=== PATIENT | female | born 1955 | race Caucasian/White ===

== ENCOUNTER 2018-01-02 20:25 | Inpatient (IN) | payer MEDICARE ==
[~2018-01-02] VITALS: Ht 160 cm; Wt 88.0 kg
[2018-01-02 23:00] VITALS: BP 173/96
[2018-01-03] MEDS ORDERED: ASPIRIN EC81 MG ORAL (00:09)
[2018-01-03] MEDS ORDERED: TELMISARTAN80 MG PO (00:09)
[2018-01-03] MEDS ORDERED: MILK OF MA2400 MG/10 ORAL (00:09)
[2018-01-03] MEDS ORDERED: CLOPIDOGREL75 MG ORAL (00:09)
[2018-01-03] MEDS ORDERED: HYDROCHLOROTHIA25 MG ORAL (00:09)
[2018-01-03] MEDS ORDERED: SPIRIVA18 MCG INH (00:09)
[2018-01-03] MEDS ORDERED: CYMBALTA60 MG ORAL (00:09)
[2018-01-03] MEDS ORDERED: KLONOPIN1 MG ORAL (00:09)
[2018-01-03] MEDS ORDERED: REXULTI3 MG PO (00:09)
[2018-01-03] MEDS ORDERED: PROAIR HFA8.5 GM INH (00:09)
[2018-01-03] MEDS ORDERED: METOPROLOL SUCC50 MG ORAL (00:09)
[2018-01-03] MEDS ORDERED: ACETAMINOPHEN325 M1 ORAL (00:09)
[2018-01-03] MEDS ORDERED: ATORVASTATIN CA40 MG ORAL (00:09)
[2018-01-03] MEDS ORDERED: COLACE100 MG ORAL (00:09)
[2018-01-03] MEDS ORDERED: GABAPENTIN600 MG ORAL (00:09)
[2018-01-03] MEDS ORDERED: TERAZOSIN HCL1 MG ORAL (00:09)
[2018-01-03] MEDS ORDERED: LISINOPRIL20 MG ORAL (00:09)
[2018-01-03] MEDS ORDERED: Milk of Magnesia 30ml Ud ORAL PRN (01:45)
[2018-01-03] MEDS ORDERED: Albuterol 90mcg Inhaler 8gm INH PRN (01:45)
[2018-01-03 04:00] VITALS: BP 189/115
[2018-01-03 07:38] LABS: HEMATOCRIT 44.5 % (37.0-47.0); HEMOGLOBIN 15.6 G/DL (12.0-16.0); MEAN CORPUSCULAR VOLUME 81 FL (80-99); PLATELET COUNT 295 K/UL (150-450); RED BLOOD COUNT 5.51 M/UL (4.20-5.40); RED CELL DISTRIBUTION WIDTH 11.7 % (11.6-14.8); WHITE BLOOD COUNT 18.1 K/UL (4.8-10.8)
[2018-01-03 08:00] VITALS: BP 161/95
[2018-01-03 08:12] LABS: ANION GAP 18 mmol/L (5-15); BLOOD UREA NITROGEN 21 mg/dL (7-18); CALCIUM 9.4 MG/DL (8.5-10.1); CARBON DIOXIDE 20 MMOL/L (21-32); CHLORIDE 96 MMOL/L (98-107); CHOLESTEROL 176 MG/DL (< 200); HDL CHOLESTEROL 51 MG/DL (40-60); PHOSPHORUS 3.3 MG/DL (2.5-4.9); SODIUM 134 MMOL/L (136-145); TRIGLYCERIDES 125 MG/DL (30-150)
[2018-01-03] MEDS ORDERED: Lisinopril 20mg tab ORAL SCH (09:00)
[2018-01-03] MEDS ORDERED: Metoprolol Succinate XL 50mg tab ORAL SCH (09:00)
[2018-01-03] MEDS ORDERED: Irbesartan 150mg tablet ORAL SCH (09:00)
[2018-01-03] MEDS: Aspirin EC 81mg tab ORAL SCH (10:03)
[2018-01-03] MEDS: Docusate 100mg cap ORAL SCH ×2 (10:03→17:53)
[2018-01-03] MEDS: Terazosin 1mg cap ORAL SCH (10:04)
[2018-01-03 12:00] VITALS: BP 141/82
[2018-01-03] MEDS: DULoxetine 30mg cap ORAL SCH (12:30)
[2018-01-03] MEDS: Metoprolol Succinate XL 50mg tab ORAL SCH ×2 (12:35→20:28)
--- NOTE | 2018-01-03 13:13 | Consultation ---
History of Present Illness General Date patient seen: Jan 03, 2018 Present Illness HPI 62 yo female with mmp who has been admitted for ams and pneumonia. the pt is lethargic and is a poor historian. The pt is on cymbalta and klonopin. She takes the medications at the facility she resides. the pt has waxing and waning of consciousness. Allergies: Coded Allergies: SULFA (SULFONAMIDE ANTIBIOTICS) (Unverified Allergy, Unknown, 01/03/18) Medication History Scheduled Aspirin Ec* (Aspirin Ec*), 81 MG ORAL DAILY, (Reported) Atorvastatin Calcium* (Atorvastatin Calcium*), 80 MG ORAL BEDTIME, (Reported) Brexpiprazole (Rexulti), 3 MG PO DAILY, (Reported) Clonazepam* (Klonopin*), 1 MG ORAL HS, (Reported) Clopidogrel* (Clopidogrel*), 75 MG ORAL DAILY, (Reported) Docusate Sodium* (Colace*), 100 MG ORAL TWICE A DAY, (Reported) Duloxetine Hcl* (Cymbalta*), 60 MG ORAL DAILY, (Reported) Gabapentin* (Gabapentin*), 600 MG ORAL THREE TIMES A DAY, (Reported) Hydrochlorothiazide* (Hydrochlorothiazide*), 25 MG ORAL DAILY, (Reported) Lisinopril (Lisinopril*), 40 MG ORAL DAILY, (Reported) Metoprolol Succinate* (Metoprolol Succinate*), 50 MG ORAL DAILY, (Reported) Telmisartan (Telmisartan), 80 MG PO DAILY, (Reported) Terazosin Hcl* (Hytrin*), 2 MG ORAL DAILY, (Reported) Tiotropium [place]* (Spiriva*), 1 PUFF INH DAILY, (Reported) Scheduled PRN Acetaminophen* (Acetaminophen 325MG Tablet*), 650 MG ORAL Q6H PRN for Fever/ Headache/Mild Pain, (Reported) Albuterol Sulfate* (Proair Hfa*), 2 PUFFS INH Q4HR PRN for Shortness of breath, (Reported) Magnesium Hydroxide* (Milk Of Magnesia*), 30 ML ORAL DAILY PRN for Constipation, (Reported) Patient History Limited by: medical condition History Provided By: Patient, Medical Record, PMD Healthcare decision maker Resuscitation status Full Code Advanced Directive on File Past Medical/Surgical History Past Medical/Surgical History: (1) Altered consciousness (2) ALOC, HTN, Pneumonia Review of Systems Psychiatric: Reports: prior hx, anxiety, depressed feelings Physical Exam General Appearance: no apparent distress, lethargic Neurologic: depressed affect Last 24 Hour Vital Signs Date Time Temp Pulse Resp B/P (MAP) Pulse Ox O2 Delivery O2 Flow Rate FiO2 01/03/18 12:35 108 141/82 01/03/18 12:00 97.7 108 21 141/82 95 Room Air 97.7 01/03/18 12:00 125 01/03/18 10:04 161/95 01/03/18 08:12 118 20 98 Room Air 21 01/03/18 08:06 110 20 95 Room Air 21 01/03/18 08:04 95 Room Air 21 01/03/18 08:00 112 01/03/18 08:00 97.9 110 21 161/95 94 Room Air 97.9 01/03/18 06:44 189/115 01/03/18 04:00 91 01/03/18 04:00 98.0 97 20 189/115 98 Room Air 98.0 01/03/18 00:00 84 01/02/18 23:00 98.0 16 173/96 98 Room Air 98.0 Intake and Output 01/02/18 01/03/18 19:00 07:00 # Voids 3 Laboratory Tests Test 01/03/18 06:50 White Blood Count 18.1 K/UL (4.8-10.8) H Red Blood Count 5.51 M/UL (4.20-5.40) H Hemoglobin 15.6 G/DL (12.0-16.0) Hematocrit 44.5 % (37.0-47.0) Mean Corpuscular Volume 81 FL (80-99) Mean Corpuscular Hemoglobin 28.3 PG (27.0-31.0) Mean Corpuscular Hemoglobin Concent 35.0 G/DL (32.0-36.0) Red Cell Distribution Width 11.7 % (11.6-14.8) Platelet Count 295 K/UL (150-450) Mean Platelet Volume 7.4 FL (6.5-10.1) Neutrophils (%) (Auto) % (45.0-75.0) Lymphocytes (%) (Auto) % (20.0-45.0) Monocytes (%) (Auto) % (1.0-10.0) Eosinophils (%) (Auto) % (0.0-3.0) Basophils (%) (Auto) % (0.0-2.0) Differential Total Cells Counted 100 Neutrophils % (Manual) 73 % (45-75) Lymphocytes % (Manual) 21 % (20-45) Monocytes % (Manual) 6 % (1-10) Eosinophils % (Manual) 0 % (0-3) Basophils % (Manual) 0 % (0-2) Band Neutrophils 0 % (0-8) Platelet Estimate Adequate Platelet Morphology Normal Red Blood Cell Morphology Normal Sodium Level 134 MMOL/L (136-145) L Potassium Level 3.0 MMOL/L (3.5-5.1) L Chloride Level 96 MMOL/L (98-107) L Carbon Dioxide Level 20 MMOL/L (21-32) L Anion Gap 18 mmol/L (5-15) H Blood Urea Nitrogen 21 mg/dL (7-18) H Creatinine 1.0 MG/DL (0.55-1.30) Estimat Glomerular Filtration Rate 56.4 mL/min (>60) Glucose Level 184 MG/DL (74-106) H Calcium Level 9.4 MG/DL (8.5-10.1) Phosphorus Level 3.3 MG/DL (2.5-4.9) Magnesium Level 1.5 MG/DL (1.8-2.4) L Triglycerides Level 125 MG/DL (30-150) Cholesterol Level 176 MG/DL (< 200) LDL Cholesterol 113 mg/dL (<100) H HDL Cholesterol 51 MG/DL (40-60) Cholesterol/HDL Ratio 3.5 (3.3-4.4) Height (Feet): 5 Height (Inches): 3.00 Weight (Pounds): 194 Medications Current Medications Medications (Trade) Dose Ordered Sig/Crystal Route PRN Reason Start Time Stop Time Status Last Admin Dose Admin Acetaminophen (Tylenol) 650 mg Q6H PRN ORAL Fever/Headache/Mild Pain 01/03/18 01:45 02/02/18 01:44 Albuterol Sulfate (Proventil MDI) 2 puff Q4H PRN INH Shortness of breath 01/03/18 01:45 02/02/18 01:44 Aspirin (Ecotrin) 81 mg DAILY ORAL 01/03/18 09:00 02/02/18 08:59 01/03/18 10:03 Atorvastatin Calcium (Lipitor) 80 mg BEDTIME ORAL 01/03/18 21:00 02/02/18 20:59 Clonazepam (KlonoPIN) 1 mg BEDTIME ORAL 01/03/18 21:00 01/10/18 20:59 Clonidine HCl (Catapres Tab) 0.1 mg Q4H PRN ORAL For High Blood Pressure 01/03/18 06:15 02/02/18 06:14 01/03/18 06:44 Clopidogrel Bisulfate (Plavix) 75 mg DAILY ORAL 01/03/18 09:00 02/02/18 08:59 01/03/18 10:04 Docusate Sodium (Colace) 100 mg TWICE A DAY ORAL 01/03/18 09:00 02/02/18 08:59 01/03/18 10:03 Duloxetine HCl (Cymbalta) 60 mg DAILY ORAL 01/03/18 12:30 02/02/18 12:29 01/03/18 12:30 Gabapentin (Neurontin) 600 mg THREE TIMES A DAY ORAL 01/03/18 13:00 02/02/18 12:59 01/03/18 12:30 Heparin Sodium (Porcine) (Heparin 5000 units/ml) 5,000 units EVERY 8 HOURS SUBQ 01/03/18 14:00 02/02/18 13:59 Hydrochlorothiazide (Hydrodiuril) 25 mg DAILY ORAL 01/03/18 09:00 02/02/18 08:59 01/03/18 10:04 Irbesartan (Avapro) 300 mg DAILY ORAL 01/03/18 09:00 02/02/18 08:59 01/03/18 10:04 Magnesium Hydroxide (Mom) 30 ml DAILY PRN ORAL Constipation 01/03/18 01:45 02/02/18 01:44 Magnesium Sulfate 100 ml @ 100 mls/hr Q1H IVPB 01/03/18 12:00 01/03/18 13:59 01/03/18 12:29 Metoprolol Succinate (Toprol XL) 50 mg Q12HR ORAL 01/03/18 12:00 02/02/18 11:59 01/03/18 12:35 Non-Formulary Medication (Non-Formulary Med) 1 ea DAILY ORAL 01/03/18 09:00 02/02/18 08:59 UNV Potassium Chloride (K-Dur) 40 meq Q8H ORAL 01/03/18 12:00 01/03/18 20:01 01/03/18 12:29 Terazosin HCl (Hytrin) 2 mg DAILY ORAL 01/03/18 09:00 02/02/18 08:59 01/03/18 10:04 Tiotropium [place] (Spiriva Inhaler) 1 puff DAILY INH 01/03/18 09:00 02/02/18 08:59 01/03/18 08:09 Assessment/Plan Status: not improved Assessment/Plan MDD Anxiety Encephalopathy -Cymbalta -Klonopin -Seroquel Kathleen Bonds M.D. Jan 03, 2018 13:13
[2018-01-03] MEDS: Heparin 5000 units/ml inj SUBQ SCH ×2 (14:50→22:26)
[2018-01-03 16:00] VITALS: BP 133/81
--- NOTE | 2018-01-03 16:31 | Diagnostic Imaging Report ---
Indication: Altered level of consciousness Technique: sagittal T1 fast spin echo, axial T1 FLAIR, axial T2 FLAIR, axial T2 FS PROPELLER, axial T2* GRE, axial diffusion weighted images. ADC and exponential ADC maps generated Comparison: none Findings: There is an area of encephalomalacia in the left occipital lobe. The periphery of this nodule demonstrating high diffusion signal and low signal on ADC map, consisting extension of prior infarct in this area. No associated hemorrhage. There is a large area of encephalomalacia of the involving much of the left parietal lobe, the posterior temporal lobe, and extending into the occipital lobe. There is of susceptibility artifact on the GRE images demonstrate matched low signal on the T1 and T1-2 weighted images, consistent with chronic areas of hemorrhage. Peripheral areas of high T1 signal do not have any associated GRE abnormality, most likely represent areas of cortical laminar necrosis. There is high signal on the diffusion weighted images, but the high diffusion signal appears to mostly show high signal on the ADC map, consistent with artifact of so-called T2 shine-through. There is a small area of encephalomalacia in the posterior right temporal lobe. No definite acute hemorrhage associated with this.. Elsewhere, no definite acute hemorrhage or edema, mass effect, nor midline shift. There is mild age-related prominence of the ventricles and extra axial CSF spaces. There is periventricular deep white matter chronic ischemic change. Visualized orbits are unremarkable. There is sinus disease Impression: Left occipital infarct. The central portion of this appears mostly chronic, but there appears to be some peripheral extension of acute infarct, with high diffusion signal present Large old left temporoparietal infarct, with areas of old hemorrhage and cortical laminar necrosis Old right posterior temporal infarct Other chronic and age-related changes, as described Sinus disease Findings discussed by phone with Dr. Nunez at the time of interpretation
--- NOTE | 2018-01-03 18:07 | History & Physical ---
History and Physical History & Physicial Dictated for Int Med-Dr Nunez no. [id number]. Constantin Benson MD Jan 03, 2018 18:07
[2018-01-03 20:00] VITALS: BP 92/52
[2018-01-03] MEDS: Atorvastatin 80mg tab ORAL SCH (20:28)
--- NOTE | 2018-01-03 22:08 | Consultation ---
History of Present Illness Present Illness Allergies: Coded Allergies: SULFA (SULFONAMIDE ANTIBIOTICS) (Unverified Allergy, Unknown, 01/03/18) Medication History Scheduled Aspirin Ec* (Aspirin Ec*), 81 MG ORAL DAILY, (Reported) Atorvastatin Calcium* (Atorvastatin Calcium*), 80 MG ORAL BEDTIME, (Reported) Brexpiprazole (Rexulti), 3 MG PO DAILY, (Reported) Clonazepam* (Klonopin*), 1 MG ORAL HS, (Reported) Clopidogrel* (Clopidogrel*), 75 MG ORAL DAILY, (Reported) Docusate Sodium* (Colace*), 100 MG ORAL TWICE A DAY, (Reported) Duloxetine Hcl* (Cymbalta*), 60 MG ORAL DAILY, (Reported) Gabapentin* (Gabapentin*), 600 MG ORAL THREE TIMES A DAY, (Reported) Hydrochlorothiazide* (Hydrochlorothiazide*), 25 MG ORAL DAILY, (Reported) Lisinopril (Lisinopril*), 40 MG ORAL DAILY, (Reported) Metoprolol Succinate* (Metoprolol Succinate*), 50 MG ORAL DAILY, (Reported) Telmisartan (Telmisartan), 80 MG PO DAILY, (Reported) Terazosin Hcl* (Hytrin*), 2 MG ORAL DAILY, (Reported) Tiotropium [place]* (Spiriva*), 1 PUFF INH DAILY, (Reported) Scheduled PRN Acetaminophen* (Acetaminophen 325MG Tablet*), 650 MG ORAL Q6H PRN for Fever/ Headache/Mild Pain, (Reported) Albuterol Sulfate* (Proair Hfa*), 2 PUFFS INH Q4HR PRN for Shortness of breath, (Reported) Magnesium Hydroxide* (Milk Of Magnesia*), 30 ML ORAL DAILY PRN for Constipation, (Reported) Patient History Healthcare decision maker Resuscitation status Full Code Advanced Directive on File Physical Exam Last 24 Hour Vital Signs Date Time Temp Pulse Resp B/P (MAP) Pulse Ox O2 Delivery O2 Flow Rate FiO2 01/03/18 20:28 112 92/52 01/03/18 20:00 97.3 114 22 92/52 97 Room Air 97.3 01/03/18 20:00 112 01/03/18 19:25 113 115 137 01/03/18 16:00 112 01/03/18 16:00 97.9 101 20 133/81 97 Room Air 97.9 01/03/18 12:35 108 141/82 01/03/18 12:00 97.7 108 21 141/82 95 Room Air 97.7 01/03/18 12:00 125 01/03/18 10:04 161/95 01/03/18 08:12 118 20 98 Room Air 21 01/03/18 08:06 110 20 95 Room Air 21 01/03/18 08:04 95 Room Air 21 01/03/18 08:00 112 01/03/18 08:00 97.9 110 21 161/95 94 Room Air 97.9 01/03/18 06:44 189/115 01/03/18 04:00 91 01/03/18 04:00 98.0 97 20 189/115 98 Room Air 98.0 01/03/18 00:00 84 01/02/18 23:00 98.0 16 173/96 98 Room Air 98.0 Intake and Output 01/02/18 01/03/18 19:00 07:00 # Voids 3 Laboratory Tests Test 01/03/18 06:50 White Blood Count 18.1 K/UL (4.8-10.8) H Red Blood Count 5.51 M/UL (4.20-5.40) H Hemoglobin 15.6 G/DL (12.0-16.0) Hematocrit 44.5 % (37.0-47.0) Mean Corpuscular Volume 81 FL (80-99) Mean Corpuscular Hemoglobin 28.3 PG (27.0-31.0) Mean Corpuscular Hemoglobin Concent 35.0 G/DL (32.0-36.0) Red Cell Distribution Width 11.7 % (11.6-14.8) Platelet Count 295 K/UL (150-450) Mean Platelet Volume 7.4 FL (6.5-10.1) Neutrophils (%) (Auto) % (45.0-75.0) Lymphocytes (%) (Auto) % (20.0-45.0) Monocytes (%) (Auto) % (1.0-10.0) Eosinophils (%) (Auto) % (0.0-3.0) Basophils (%) (Auto) % (0.0-2.0) Differential Total Cells Counted 100 Neutrophils % (Manual) 73 % (45-75) Lymphocytes % (Manual) 21 % (20-45) Monocytes % (Manual) 6 % (1-10) Eosinophils % (Manual) 0 % (0-3) Basophils % (Manual) 0 % (0-2) Band Neutrophils 0 % (0-8) Platelet Estimate Adequate Platelet Morphology Normal Red Blood Cell Morphology Normal Sodium Level 134 MMOL/L (136-145) L Potassium Level 3.0 MMOL/L (3.5-5.1) L Chloride Level 96 MMOL/L (98-107) L Carbon Dioxide Level 20 MMOL/L (21-32) L Anion Gap 18 mmol/L (5-15) H Blood Urea Nitrogen 21 mg/dL (7-18) H Creatinine 1.0 MG/DL (0.55-1.30) Estimat Glomerular Filtration Rate 56.4 mL/min (>60) Glucose Level 184 MG/DL (74-106) H Calcium Level 9.4 MG/DL (8.5-10.1) Phosphorus Level 3.3 MG/DL (2.5-4.9) Magnesium Level 1.5 MG/DL (1.8-2.4) L Triglycerides Level 125 MG/DL (30-150) Cholesterol Level 176 MG/DL (< 200) LDL Cholesterol 113 mg/dL (<100) H HDL Cholesterol 51 MG/DL (40-60) Cholesterol/HDL Ratio 3.5 (3.3-4.4) Height (Feet): 5 Height (Inches): 3.00 Weight (Pounds): 194 Medications Current Medications Medications (Trade) Dose Ordered Sig/Crystal Route PRN Reason Start Time Stop Time Status Last Admin Dose Admin Acetaminophen (Tylenol) 650 mg Q6H PRN ORAL Fever/Headache/Mild Pain 01/03/18 01:45 02/02/18 01:44 Albuterol Sulfate (Proventil MDI) 2 puff Q4H PRN INH Shortness of breath 01/03/18 01:45 02/02/18 01:44 Aspirin (Ecotrin) 81 mg DAILY ORAL 01/03/18 09:00 02/02/18 08:59 01/03/18 10:03 Atorvastatin Calcium (Lipitor) 80 mg BEDTIME ORAL 01/03/18 21:00 02/02/18 20:59 01/03/18 20:28 Clonazepam (KlonoPIN) 1 mg BEDTIME ORAL 01/03/18 21:00 01/10/18 20:59 01/03/18 20:27 Clonidine HCl (Catapres Tab) 0.1 mg Q4H PRN ORAL For High Blood Pressure 01/03/18 06:15 02/02/18 06:14 01/03/18 06:44 Clopidogrel Bisulfate (Plavix) 75 mg DAILY ORAL 01/03/18 09:00 02/02/18 08:59 01/03/18 10:04 Docusate Sodium (Colace) 100 mg TWICE A DAY ORAL 01/03/18 09:00 02/02/18 08:59 01/03/18 17:53 Duloxetine HCl (Cymbalta) 60 mg DAILY ORAL 01/03/18 12:30 02/02/18 12:29 01/03/18 12:30 Gabapentin (Neurontin) 600 mg THREE TIMES A DAY ORAL 01/03/18 13:00 02/02/18 12:59 01/03/18 17:53 Heparin Sodium (Porcine) (Heparin 5000 units/ml) 5,000 units EVERY 8 HOURS SUBQ 01/03/18 14:00 02/02/18 13:59 Hydrochlorothiazide (Hydrodiuril) 25 mg DAILY ORAL 01/03/18 09:00 02/02/18 08:59 01/03/18 10:04 Irbesartan (Avapro) 300 mg DAILY ORAL 01/04/18 09:00 02/02/18 08:59 Magnesium Hydroxide (Mom) 30 ml DAILY PRN ORAL Constipation 01/03/18 01:45 02/02/18 01:44 Metoprolol Succinate (Toprol XL) 50 mg Q12HR ORAL 01/03/18 12:00 02/02/18 11:59 01/03/18 12:35 Non-Formulary Medication (Non-Formulary Med) 1 ea DAILY ORAL 01/03/18 09:00 02/02/18 08:59 UNV Quetiapine Fumarate (SEROquel) 12.5 mg Q4H PRN ORAL Agitation 01/03/18 14:30 02/02/18 14:29 Terazosin HCl (Hytrin) 2 mg DAILY ORAL 01/03/18 09:00 02/02/18 08:59 01/03/18 10:04 Tiotropium [place] (Spiriva Inhaler) 1 puff DAILY INH 01/03/18 09:00 02/02/18 08:59 01/03/18 08:09 Jalen Cantrell MD Jan 03, 2018 22:08
--- NOTE | 2018-01-03 22:31 | History and Physical Report ---
DATE OF ADMISSION: 01/03/2018 CHIEF COMPLAINT: This is a 62-year-old white female, who presents with chief complaint of altered mental status. HISTORY OF PRESENT ILLNESS: The patient has a history of cerebrovascular accident. The patient has chronic dysarthria. The patient is a resident of [facility]. According to staff at [facility], the patient began to have altered mental status yesterday January 02, 2018. The patient was transferred to [facility] emergency room. The patient is transferred to [facility] for insurance purposes. The patient is admitted for altered mental status, rule out acute cerebrovascular accident. PAST MEDICAL HISTORY: Significant for, 1. Cerebrovascular accident. 2. Hypertension. 3. Hypercholesterolemia. 4. Congestive heart failure. PAST SURGICAL HISTORY: The patient denies. CURRENT MEDICATIONS: 1. Cymbalta 60 mg one tablet p.o. daily. 2. Gabapentin 600 mg one tablet p.o. 3 times daily. 3. Hydrochlorothiazide 25 mg p.o. daily. 4. Metoprolol 50 mg p.o. daily. 5. Klonopin 1 mg p.o. at bedtime. 6. Clopidogrel 75 mg p.o. daily. 7. Aspirin 81 mg p.o. daily. 8. Atorvastatin 80 mg p.o. daily. 9. Rexulti 3 mg p.o. daily. ALLERGIES: Sulfa drugs. SOCIAL HISTORY: The patient is single. The patient denies tobacco or alcohol use. PHYSICAL EXAMINATION: VITAL SIGNS: Temperature 97.7, respirations 21, pulse 108 to 125, and blood pressure 141/82. GENERAL: The patient is a well-developed and well-nourished white female, in no apparent distress. HEENT: Eyes, pupils equal and responsive to light and accommodation. Extraocular movements are intact. NECK: Supple without lymphadenopathy. CHEST: Lungs are clear to auscultation bilaterally without wheezes or rales. CARDIOVASCULAR: Regular rhythm and rate. S1 and S2 are normal without murmurs, rubs, or gallops. ABDOMEN: Soft, nontender, and nondistended. Positive bowel sounds. No evidence of hepatosplenomegaly. Currently, no rebound or guarding noted. EXTREMITIES: Negative for clubbing, cyanosis, or edema. RECTAL/GENITAL: Refused. NEUROLOGIC: Cranial nerves II through XII are grossly intact without focal deficits. Motor strength is 5/5 bilaterally. Deep tendon reflexes are 2+ plantar. LABORATORY DATA: A CT scan of the brain revealed bilateral lower attention areas consistent with infarcts of uncertain age. WBC 10.3, hemoglobin 14.3, hematocrit 41.7, and platelets 206,000. Sodium 139, potassium 3.7, chloride 101, CO2 28, BUN 24, creatinine 1.3, and glucose 172. ASSESSMENT: This is a 62-year-old white female. 1. Altered mental status. 2. Uncontrolled hypertension. 3. Pneumonia. 4. Hypercholesterolemia. 5. History of cerebrovascular disease. 6. Bipolar depression. 7. Probable acute cerebrovascular accident. TREATMENT: 1. Altered mental status/history of cerebrovascular accident. A Neurology consultation has been obtained with Dr. Charlie Murdock. We will follow recommendations of Neurology. An MRI of the brain is pending. 2. Uncontrolled hypertension. Continue metoprolol as above. Intravenous Vasotec has been added. 3. Hypercholesteremia. Continue Lipitor as above. 4. Bipolar depression. Continue Cymbalta as above. Constantin Benson M.D. DR: JESUS JOB#: [id number] CC:
[2018-01-04] VITALS (8 sets, daily range): BP systolic 78–133; BP diastolic 48–71
[2018-01-04] MEDS: Heparin 5000 units/ml inj SUBQ SCH ×3 (05:49→22:48)
--- NOTE | 2018-01-04 08:33 | Pulmonology Progress Note ---
Assessment/Plan Assessment/Plan ASSESSMENT Recent acute left occipital infarct Extensive cerebrovascular disease with history of previous CVA Hypertensive urgency-resolved, currently hypotensive RICCARDO, possibly ATN due to hypotension Hypercholesterolemia Acute encephalopathy secondary to acute CVA Hypo K, hypo Mg Leukocytosis MDD Anxiety PLAN OF CARE Telemetry floor MRI of the brain + left occipital infarct with evidence of extensive cerebrovascular disease and previous CVA neurology eval pending continue aspirin and Plavix lipid panel with elevated LDL on high dose of statin Carotid Duplex blood pressure management with ARB and BB , dc HcTZ, decrease ARB dose and holding parameters on a/HTN meds; need to keep BP between 120-40 to maintain optimal cerebral perfusion orthostatic vital signs DVT prophylaxis gentle IV hydration acute encephalopathy resolving, likely secondary to recent CVA leukocytosis likely reactive due to acute CVA, afebrile, will hold off on abx , but will check UA, CXR, blood cx PT/OT/ ST fall precaution monitor renal parameters ,electrolytes, correct lytes as needed, avoid nephrotoxic dc HcTz RICCARDO/ATN possibly due to unstable hemodynamics, i.e. hypotension, continue gentle IV hydration psychiatrist follows, psychiatric medication regimen as per psychiatrist case discussed and evaluated by supervising physician Subjective Allergies: Coded Allergies: SULFA (SULFONAMIDE ANTIBIOTICS) (Unverified Allergy, Unknown, 01/03/18) Subjective denies chest pain, SOB no headache no new weakness transferred from [place] apparently recent history of left CVA noted on CT brain in [place] afebrile, with leucocytosis, trending down, denies urinary complaints, cough creat up to 1.5 today Objective Last 24 Hour Vital Signs Date Time Temp Pulse Resp B/P (MAP) Pulse Ox O2 Delivery O2 Flow Rate FiO2 01/04/18 06:10 125 01/04/18 06:05 111 01/04/18 06:00 95 01/04/18 04:00 97 01/04/18 04:00 98.6 70 22 99/52 96 Room Air 98.6 01/04/18 00:45 90 112/59 01/04/18 00:30 89 105/54 01/04/18 00:00 89 01/04/18 00:00 98.8 99 22 90/55 99 Room Air 98.8 01/03/18 20:28 112 92/52 01/03/18 20:00 97.3 114 22 92/52 97 Room Air 97.3 01/03/18 20:00 112 01/03/18 19:25 113 115 137 01/03/18 16:00 112 01/03/18 16:00 97.9 101 20 133/81 97 Room Air 97.9 01/03/18 12:35 108 141/82 01/03/18 12:00 97.7 108 21 141/82 95 Room Air 97.7 01/03/18 12:00 125 01/03/18 10:04 161/95 Intake and Output 01/03/18 01/04/18 19:00 07:00 Intake Total 380 ml Balance 380 ml Intake Oral 380 ml # Voids 2 2 General Appearance: no acute distress, other - awake, alert, responsive , mildly dysarthric female HEENT: normocephalic, atraumatic, anicteric Respiratory/Chest: lungs clear, no respiratory distress, no accessory muscle use Cardiovascular: normal peripheral pulses, normal rate - SR on tele Abdomen: soft, non tender, non distended Extremities: no edema, pedal pulses normal Neurologic/Psychiatric: abnormal gait - R side weakness , alert, responsive Musculoskeletal: atrophy - BLE Laboratory Tests 01/04/18 07:35: White Blood Count [Pending], Red Blood Count [Pending], Hemoglobin [Pending], Hematocrit [Pending], Mean Corpuscular Volume [Pending], Mean Corpuscular Hemoglobin [Pending], Mean Corpuscular Hemoglobin Concent [Pending], Red Cell Distribution Width [Pending], Platelet Count [Pending], Mean Platelet Volume [ Pending], Neutrophils (%) (Auto) [Pending], Lymphocytes (%) (Auto) [Pending], Monocytes (%) (Auto) [Pending], Eosinophils (%) (Auto) [Pending], Basophils (%) (Auto) [Pending], Sodium Level [Pending], Potassium Level [Pending], Chloride Level [Pending], Carbon Dioxide Level [Pending], Blood Urea Nitrogen [Pending], Creatinine [Pending], Estimat Glomerular Filtration Rate [Pending], Glucose Level [Pending], Calcium Level [Pending] Current Medications Medications (Trade) Dose Ordered Sig/Crystal Route PRN Reason Start Time Stop Time Status Last Admin Dose Admin Acetaminophen (Tylenol) 650 mg Q6H PRN ORAL Fever/Headache/Mild Pain 01/03/18 01:45 02/02/18 01:44 Albuterol Sulfate (Proventil MDI) 2 puff Q4H PRN INH Shortness of breath 01/03/18 01:45 02/02/18 01:44 Aspirin (Ecotrin) 81 mg DAILY ORAL 01/03/18 09:00 02/02/18 08:59 01/03/18 10:03 Atorvastatin Calcium (Lipitor) 80 mg BEDTIME ORAL 01/03/18 21:00 02/02/18 20:59 01/03/18 20:28 Clonazepam (KlonoPIN) 1 mg BEDTIME ORAL 01/03/18 21:00 01/10/18 20:59 01/03/18 20:27 Clonidine HCl (Catapres Tab) 0.1 mg Q4H PRN ORAL For High Blood Pressure 01/03/18 06:15 02/02/18 06:14 01/03/18 06:44 Clopidogrel Bisulfate (Plavix) 75 mg DAILY ORAL 01/03/18 09:00 02/02/18 08:59 01/03/18 10:04 Docusate Sodium (Colace) 100 mg TWICE A DAY ORAL 01/03/18 09:00 02/02/18 08:59 01/03/18 17:53 Duloxetine HCl (Cymbalta) 60 mg DAILY ORAL 01/03/18 12:30 02/02/18 12:29 01/03/18 12:30 Gabapentin (Neurontin) 600 mg THREE TIMES A DAY ORAL 01/03/18 13:00 02/02/18 12:59 01/03/18 17:53 Heparin Sodium (Porcine) (Heparin 5000 units/ml) 5,000 units EVERY 8 HOURS SUBQ 01/03/18 14:00 02/02/18 13:59 01/04/18 05:49 Hydrochlorothiazide (Hydrodiuril) 25 mg DAILY ORAL 01/03/18 09:00 02/02/18 08:59 01/03/18 10:04 Irbesartan (Avapro) 300 mg DAILY ORAL 01/04/18 09:00 02/02/18 08:59 Magnesium Hydroxide (Mom) 30 ml DAILY PRN ORAL Constipation 01/03/18 01:45 02/02/18 01:44 Metoprolol Succinate (Toprol XL) 50 mg Q12HR ORAL 01/03/18 12:00 02/02/18 11:59 01/03/18 12:35 Non-Formulary Medication (Non-Formulary Med) 1 ea DAILY ORAL 01/03/18 09:00 02/02/18 08:59 UNV Quetiapine Fumarate (SEROquel) 12.5 mg Q4H PRN ORAL Agitation 01/03/18 14:30 02/02/18 14:29 Terazosin HCl (Hytrin) 2 mg DAILY ORAL 01/03/18 09:00 02/02/18 08:59 01/03/18 10:04 Tiotropium Oral (Spiriva Inhaler) 1 puff DAILY INH 01/03/18 09:00 02/02/18 08:59 01/03/18 08:09 Dunia Hernandez NP Jan 04, 2018 08:33
[2018-01-04 08:34] LABS: BASOPHILS % (AUTO) 0.7 % (0.0-2.0); EOSINOPHILS % (AUTO) 0.4 % (0.0-3.0); HEMATOCRIT 39.2 % (37.0-47.0); HEMOGLOBIN 13.8 G/DL (12.0-16.0); MEAN CORPUSCULAR VOLUME 82 FL (80-99); MONOCYTES % (AUTO) 9.2 % (1.0-10.0); NEUTROPHILS % (AUTO) 78.7 % (45.0-75.0); PLATELET COUNT 219 K/UL (150-450); RED BLOOD COUNT 4.76 M/UL (4.20-5.40); RED CELL DISTRIBUTION WIDTH 12.2 % (11.6-14.8); WHITE BLOOD COUNT 15.1 K/UL (4.8-10.8)
[2018-01-04 08:50] LABS: ANION GAP 12 mmol/L (5-15); BLOOD UREA NITROGEN 44 mg/dL (7-18); CALCIUM 8.9 MG/DL (8.5-10.1); CARBON DIOXIDE 18 MMOL/L (21-32); CHLORIDE 101 MMOL/L (98-107); CREATININE 1.5 MG/DL (0.55-1.30); POTASSIUM 3.8 MMOL/L (3.5-5.1); SODIUM 131 MMOL/L (136-145)
[2018-01-04] MEDS: Metoprolol Succinate XL 50mg tab ORAL SCH ×2 (09:00→22:45)
[2018-01-04] MEDS: Irbesartan 150mg tablet ORAL SCH ×2 (09:00→09:46)
[2018-01-04] MEDS: Terazosin 1mg cap ORAL SCH (09:36)
[2018-01-04] MEDS: Aspirin EC 81mg tab ORAL SCH (09:36)
[2018-01-04] MEDS: DULoxetine 30mg cap ORAL SCH (09:40)
[2018-01-04] MEDS: Docusate 100mg cap ORAL SCH ×2 (09:40→17:39)
--- NOTE | 2018-01-04 11:30 | Diagnostic Imaging Report ---
INDICATION: Shortness of breath COMPARISON: None FINDINGS: Single frontal view demonstrates a normal cardiomediastinal silhouette. Status post median sternotomy. Bilateral lower lung zone opacities. The visualized osseous structures are within normal limits. IMPRESSION: Status post median sternotomy. Bilateral lower lung zone opacities.
--- NOTE | 2018-01-04 11:37 | Internal Med Progress Note ---
Subjective Date of Service: Jan 04, 2018 Physician Name Constantin Benson Attending Physician Ravi Nunez MD Current Medications Medications (Trade) Dose Ordered Sig/Crystal Route PRN Reason Start Time Stop Time Status Last Admin Dose Admin Acetaminophen (Tylenol) 650 mg Q6H PRN ORAL Fever/Headache/Mild Pain 01/03/18 01:45 02/02/18 01:44 Albuterol Sulfate (Proventil MDI) 2 puff Q4H PRN INH Shortness of breath 01/03/18 01:45 02/02/18 01:44 Aspirin (Ecotrin) 81 mg DAILY ORAL 01/03/18 09:00 02/02/18 08:59 01/04/18 09:36 Atorvastatin Calcium (Lipitor) 80 mg BEDTIME ORAL 01/03/18 21:00 02/02/18 20:59 01/03/18 20:28 Clonazepam (KlonoPIN) 1 mg BEDTIME ORAL 01/03/18 21:00 01/10/18 20:59 01/03/18 20:27 Clonidine HCl (Catapres Tab) 0.1 mg Q4H PRN ORAL For High Blood Pressure 01/03/18 06:15 02/02/18 06:14 01/03/18 06:44 Clopidogrel Bisulfate (Plavix) 75 mg DAILY ORAL 01/03/18 09:00 02/02/18 08:59 01/04/18 09:40 Docusate Sodium (Colace) 100 mg TWICE A DAY ORAL 01/03/18 09:00 02/02/18 08:59 01/04/18 09:40 Duloxetine HCl (Cymbalta) 60 mg DAILY ORAL 01/03/18 12:30 02/02/18 12:29 01/04/18 09:40 Gabapentin (Neurontin) 600 mg THREE TIMES A DAY ORAL 01/03/18 13:00 02/02/18 12:59 01/04/18 09:36 Heparin Sodium (Porcine) (Heparin 5000 units/ml) 5,000 units EVERY 8 HOURS SUBQ 01/03/18 14:00 02/02/18 13:59 01/04/18 05:49 Irbesartan (Avapro) 150 mg DAILY ORAL 01/05/18 09:00 02/02/18 08:59 Magnesium Hydroxide (Mom) 30 ml DAILY PRN ORAL Constipation 01/03/18 01:45 02/02/18 01:44 Metoprolol Succinate (Toprol XL) 50 mg Q12HR ORAL 01/04/18 21:00 02/02/18 11:59 Non-Formulary Medication (Non-Formulary Med) 1 ea DAILY ORAL 01/03/18 09:00 02/02/18 08:59 UNV Quetiapine Fumarate (SEROquel) 12.5 mg Q4H PRN ORAL Agitation 01/03/18 14:30 02/02/18 14:29 Sodium Chloride 1,000 ml @ 50 mls/hr Q20H IV 01/04/18 09:00 02/03/18 08:59 01/04/18 09:35 Terazosin HCl (Hytrin) 2 mg DAILY ORAL 01/03/18 09:00 02/02/18 08:59 01/04/18 09:36 Tiotropium [place] (Spiriva Inhaler) 1 puff DAILY INH 01/03/18 09:00 02/02/18 08:59 01/04/18 09:42 Allergies: Coded Allergies: SULFA (SULFONAMIDE ANTIBIOTICS) (Unverified Allergy, Unknown, 01/03/18) ROS Limited/Unobtainable: Yes Subjective 62 YO F with history of cerebral vascular accident, admitted with altered mental status. Aphasic. Cover for Int Med-Dr Nunez Objective Last Vital Signs Date Time Temp Pulse Resp B/P (MAP) Pulse Ox O2 Delivery O2 Flow Rate FiO2 01/04/18 09:40 86 18 95 Room Air 21 01/04/18 09:00 118/64 01/04/18 08:00 98.7 98.7 General Appearance: WD/WN, no apparent distress, alert EENT: PERRL/EOMI, normal ENT inspection Neck: non-tender, normal alignment, supple, normal inspection Cardiovascular: normal peripheral pulses, normal rate, regular rhythm, no gallop/murmur, no JVD Respiratory/Chest: chest wall non-tender, lungs clear, normal breath sounds, no respiratory distress, no accessory muscle use Abdomen: normal bowel sounds, non tender, soft, no organomegaly, no mass Extremities: normal range of motion, non-tender Edema: trace edema 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, no motor/sensory deficits Skin: normal pigmentation, warm/dry Laboratory Tests Test 01/04/18 07:35 White Blood Count 15.1 K/UL (4.8-10.8) H Red Blood Count 4.76 M/UL (4.20-5.40) Hemoglobin 13.8 G/DL (12.0-16.0) Hematocrit 39.2 % (37.0-47.0) Mean Corpuscular Volume 82 FL (80-99) Mean Corpuscular Hemoglobin 28.9 PG (27.0-31.0) Mean Corpuscular Hemoglobin Concent 35.1 G/DL (32.0-36.0) Red Cell Distribution Width 12.2 % (11.6-14.8) Platelet Count 219 K/UL (150-450) Mean Platelet Volume 7.4 FL (6.5-10.1) Neutrophils (%) (Auto) 78.7 % (45.0-75.0) H Lymphocytes (%) (Auto) 11.0 % (20.0-45.0) L Monocytes (%) (Auto) 9.2 % (1.0-10.0) Eosinophils (%) (Auto) 0.4 % (0.0-3.0) Basophils (%) (Auto) 0.7 % (0.0-2.0) Sodium Level 131 MMOL/L (136-145) L Potassium Level 3.8 MMOL/L (3.5-5.1) Chloride Level 101 MMOL/L (98-107) Carbon Dioxide Level 18 MMOL/L (21-32) L Anion Gap 12 mmol/L (5-15) Blood Urea Nitrogen 44 mg/dL (7-18) H Creatinine 1.5 MG/DL (0.55-1.30) H Estimat Glomerular Filtration Rate 35.3 mL/min (>60) Glucose Level 159 MG/DL (74-106) H Calcium Level 8.9 MG/DL (8.5-10.1) Intake and Output 01/03/18 01/04/18 19:00 07:00 Intake Total 380 ml Balance 380 ml Intake Oral 380 ml # Voids 2 2 Assessment/Plan Problem List: (1) Altered mental status (2) Cerebral vascular accident Assessment & Plan: New CVA-see MRI. Await neruology consult. (3) Cerebral vascular disease (4) Hypertension, uncontrolled Assessment & Plan: Continue metoprolol and avapro. (5) Hypercholesteremia Assessment & Plan: Continue lipitor. (6) Pneumonia (7) Bipolar disorder Assessment & Plan: See psych note. Status: not improved Constantin Benson MD Jan 04, 2018 11:37
[2018-01-04] MEDS ORDERED: Tubing IV Secondary IV ONE ×2 (17:30→17:55)
[2018-01-04] MEDS ORDERED: NS 500ML ONE ×2 (17:30→17:55)
[2018-01-04] MEDS: Atorvastatin 80mg tab ORAL SCH (22:45)
[2018-01-05] VITALS: BP 150/87
[2018-01-05 04:00] VITALS: BP 104/69
[2018-01-05] MEDS: Heparin 5000 units/ml inj SUBQ SCH ×3 (06:00→21:09)
[2018-01-05 06:54] LABS: APPEARANCE,URINE CLEAR; BILIRUBIN, URINE NEGATIVE (NEGATIVE); GLUCOSE, URINE (UA) NEGATIVE (NEGATIVE); KETONES,URINE NEGATIVE (NEGATIVE); LEUKOCYTE ESTERASE ,URINE 1+ (NEGATIVE); NITRITE,URINE NEGATIVE (NEGATIVE); PH,URINE 7 (4.5-8.0); PROTEIN,URINE 3+ (NEGATIVE); UROBILINOGEN,URINE 4 MG/DL (0.0-1.0)
[2018-01-05 07:04] LABS: COLOR,URINE YELLOW
[2018-01-05 07:28] LABS: BASOPHILS % (AUTO) 0.4 % (0.0-2.0); EOSINOPHILS % (AUTO) 0.5 % (0.0-3.0); HEMATOCRIT 35.4 % (37.0-47.0); HEMOGLOBIN 12.2 G/DL (12.0-16.0); LYMPHOCYTES % (AUTO) 10.6 % (20.0-45.0); MEAN CORPUSCULAR VOLUME 82 FL (80-99); MONOCYTES % (AUTO) 8.5 % (1.0-10.0); PLATELET COUNT 215 K/UL (150-450); RED CELL DISTRIBUTION WIDTH 11.8 % (11.6-14.8); WHITE BLOOD COUNT 13.5 K/UL (4.8-10.8)
[2018-01-05 07:41] LABS: ANION GAP 8 mmol/L (5-15); BLOOD UREA NITROGEN 27 mg/dL (7-18); CALCIUM 8.5 MG/DL (8.5-10.1); CARBON DIOXIDE 21 MMOL/L (21-32); CHLORIDE 101 MMOL/L (98-107); CREATININE 1.2 MG/DL (0.55-1.30); POTASSIUM 3.7 MMOL/L (3.5-5.1); SODIUM 130 MMOL/L (136-145)
--- NOTE | 2018-01-05 07:45 | Pulmonology Progress Note ---
Assessment/Plan Assessment/Plan ASSESSMENT Recent acute left occipital infarct Extensive cerebrovascular disease with history of previous CVA Hypertensive urgency-resolved, currently hypotensive RICCARDO, possibly ATN due to hypotension Hypercholesterolemia Acute encephalopathy secondary to acute CVA Hypo K, hypo Mg Leukocytosis MDD Anxiety PLAN OF CARE Telemetry floor MRI of the brain + left occipital infarct ( new) with evidence of extensive cerebrovascular disease and previous CVA neurology eval pending continue aspirin and Plavix lipid panel with elevated LDL on high dose of statin Carotid Duplex blood pressure management with ARB and BB , off HcTZ, decreased ARB dose and holding parameters on a/HTN meds; need to keep BP between 120-40 to maintain optimal cerebral perfusion orthostatic vital signs - no evidence of orthostatic changes DVT prophylaxis gentle IV hydration acute encephalopathy resolving, likely secondary to recent CVA leukocytosis likely reactive due to acute CVA, trending down, afebrile, hold off on abx , UA + pyuria, no bacteria ( occas. only) , CXR - no CP pathology , blood cx -Pending PT/OT/ ST fall precaution monitor renal parameters ,electrolytes, correct lytes as needed, avoid nephrotoxic, lytes stable today off HcTz RICCARDO/ATN possibly due to unstable hemodynamics, i.e. hypotension, continue gentle IV hydration creat down to normal-1.2 psychiatrist follows, psychiatric medication regimen as per psychiatrist case discussed and evaluated by supervising physician Subjective Allergies: Coded Allergies: SULFA (SULFONAMIDE ANTIBIOTICS) (Unverified Allergy, Unknown, 01/03/18) Subjective denies chest pain, SOB no headache no new weakness transferred from [place] left CVA noted on CT brain in [place] afebrile, leucocytosis trending down, denies urinary complaints, cough creat down K stable Objective Last 24 Hour Vital Signs Date Time Temp Pulse Resp B/P (MAP) Pulse Ox O2 Delivery O2 Flow Rate FiO2 01/05/18 04:00 117 01/05/18 04:00 97.9 110 20 104/69 95 Room Air 97.9 01/05/18 00:00 98.2 122 20 150/87 95 Room Air 98.2 01/05/18 00:00 110 01/04/18 22:45 115 133/71 01/04/18 20:00 98.0 101 19 133/71 96 Room Air 98.0 01/04/18 20:00 115 01/04/18 16:04 106 6/30/18 16:00 98.5 111 18 117/64 97 Room Air 98.5 01/04/18 12:00 97.8 101 18 118/54 96 Room Air 97.8 01/04/18 09:40 86 18 95 Room Air 21 01/04/18 09:40 86 20 95 Room Air 21 01/04/18 09:00 99 118/64 01/04/18 08:00 97 01/04/18 08:00 98.7 100 18 100/52 97 Room Air 98.7 Intake and Output 01/04/18 01/05/18 19:00 07:00 Intake Total 460 ml Output Total 1000 ml Balance 460 ml -1000 ml Intake Oral 360 ml IV Total 100 ml Output Urine Total 1000 ml # Voids 2 # Bowel Movements 2 Objective General Appearance: no acute distress, awake, alert, responsive , mildly dysarthric female HEENT: normocephalic, atraumatic, anicteric Respiratory/Chest: lungs clear, no respiratory distress, no accessory muscle use Cardiovascular: normal peripheral pulses, normal rate - SR on tele Abdomen: soft, non tender, non distended Extremities: no edema, pedal pulses normal Neurologic/Psychiatric: abnormal gait - R side weakness , alert, responsive Musculoskeletal: atrophy - BLE Microbiology Date/Time Source Procedure Growth Status 01/03/18 04:00 Nasal Nares MRSA Culture - Final NO METHICILLIN RESISTANT STAPH AUREUS... Complete Laboratory Tests 01/05/18 05:30: Urine Color Yellow, Urine Appearance Clear, Urine pH 7, Urine Specific [place] 1.010, Urine Protein 3+H, Urine Glucose (UA) Negative, Urine Ketones Negative, Urine Occult Blood 1+H, Urine Nitrite Negative, Urine Bilirubin Negative, Urine Urobilinogen 4H, Urine Leukocyte Esterase 1+H, Urine RBC 0-2, Urine WBC 5-10H, Urine Squamous Epithelial Cells Few, Urine Bacteria Occasional 01/05/18 07:14: White Blood Count 13.5H, Red Blood Count 4.30, Hemoglobin 12.2, Hematocrit 35.4L , Mean Corpuscular Volume 82, Mean Corpuscular Hemoglobin 28.3, Mean Corpuscular Hemoglobin Concent 34.4, Red Cell Distribution Width 11.8, Platelet Count 215, Mean Platelet Volume 7.0, Neutrophils (%) (Auto) 80.0H, Lymphocytes ( %) (Auto) 10.6L, Monocytes (%) (Auto) 8.5, Eosinophils (%) (Auto) 0.5, Basophils (%) (Auto) 0.4, Sodium Level [Pending], Potassium Level [Pending], Chloride Level [Pending], Carbon Dioxide Level [Pending], Blood Urea Nitrogen [ Pending], Creatinine [Pending], Estimat Glomerular Filtration Rate [Pending], Glucose Level [Pending], Calcium Level [Pending] Current Medications Medications (Trade) Dose Ordered Sig/Crystal Route PRN Reason Start Time Stop Time Status Last Admin Dose Admin Acetaminophen (Tylenol) 650 mg Q6H PRN ORAL Fever/Headache/Mild Pain 01/03/18 01:45 02/02/18 01:44 Albuterol Sulfate (Proventil MDI) 2 puff Q4H PRN INH Shortness of breath 01/03/18 01:45 02/02/18 01:44 Aspirin (Ecotrin) 81 mg DAILY ORAL 01/03/18 09:00 02/02/18 08:59 01/04/18 09:36 Atorvastatin Calcium (Lipitor) 80 mg BEDTIME ORAL 01/03/18 21:00 02/02/18 20:59 01/04/18 22:45 Clonazepam (KlonoPIN) 1 mg BEDTIME ORAL 01/03/18 21:00 01/10/18 20:59 01/04/18 22:45 Clonidine HCl (Catapres Tab) 0.1 mg Q4H PRN ORAL For High Blood Pressure 01/03/18 06:15 02/02/18 06:14 01/03/18 06:44 Clopidogrel Bisulfate (Plavix) 75 mg DAILY ORAL 01/03/18 09:00 02/02/18 08:59 01/04/18 09:40 Docusate Sodium (Colace) 100 mg TWICE A DAY ORAL 01/03/18 09:00 02/02/18 08:59 01/04/18 17:39 Duloxetine HCl (Cymbalta) 60 mg DAILY ORAL 01/03/18 12:30 02/02/18 12:29 01/04/18 09:40 Gabapentin (Neurontin) 600 mg THREE TIMES A DAY ORAL 01/03/18 13:00 02/02/18 12:59 01/04/18 17:39 Heparin Sodium (Porcine) (Heparin 5000 units/ml) 5,000 units EVERY 8 HOURS SUBQ 01/03/18 14:00 02/02/18 13:59 01/05/18 06:00 Irbesartan (Avapro) 150 mg DAILY ORAL 01/05/18 09:00 02/02/18 08:59 Magnesium Hydroxide (Mom) 30 ml DAILY PRN ORAL Constipation 01/03/18 01:45 02/02/18 01:44 Metoprolol Succinate (Toprol XL) 50 mg Q12HR ORAL 01/04/18 21:00 02/02/18 11:59 01/04/18 22:45 Non-Formulary Medication (Non-Formulary Med) 1 ea DAILY ORAL 01/03/18 09:00 02/02/18 08:59 UNV Quetiapine Fumarate (SEROquel) 12.5 mg Q4H PRN ORAL Agitation 01/03/18 14:30 02/02/18 14:29 Sodium Chloride 1,000 ml @ 50 mls/hr Q20H IV 01/04/18 09:00 02/03/18 08:59 01/05/18 05:10 Terazosin HCl (Hytrin) 2 mg DAILY ORAL 01/03/18 09:00 02/02/18 08:59 01/04/18 09:36 Tiotropium [place] (Spiriva Inhaler) 1 puff DAILY INH 01/03/18 09:00 02/02/18 08:59 01/04/18 09:42 Dunia Hernandez NP Jan 05, 2018 07:45
[2018-01-05 08:00] VITALS: BP 109/62
[2018-01-05] MEDS: Irbesartan 150mg tablet ORAL SCH (08:42)
[2018-01-05] MEDS: Metoprolol Succinate XL 50mg tab ORAL SCH ×2 (08:46→20:42)
[2018-01-05] MEDS: Terazosin 1mg cap ORAL SCH (08:46)
[2018-01-05] MEDS: Aspirin EC 81mg tab ORAL SCH (08:55)
[2018-01-05] MEDS: DULoxetine 30mg cap ORAL SCH (08:55)
[2018-01-05] MEDS: Docusate 100mg cap ORAL SCH ×2 (08:55→18:18)
[2018-01-05 11:50] VITALS: BP 114/61
--- NOTE | 2018-01-05 14:30 | Internal Med Progress Note ---
Subjective Date of Service: Jan 05, 2018 Physician Name Constantin Benson Attending Physician Ravi Nunez MD Current Medications Medications (Trade) Dose Ordered Sig/Crystal Route PRN Reason Start Time Stop Time Status Last Admin Dose Admin Acetaminophen (Tylenol) 650 mg Q6H PRN ORAL Fever/Headache/Mild Pain 01/03/18 01:45 02/02/18 01:44 Albuterol Sulfate (Proventil MDI) 2 puff Q4H PRN INH Shortness of breath 01/03/18 01:45 02/02/18 01:44 Aspirin (Ecotrin) 81 mg DAILY ORAL 01/03/18 09:00 02/02/18 08:59 01/05/18 08:55 Atorvastatin Calcium (Lipitor) 80 mg BEDTIME ORAL 01/03/18 21:00 02/02/18 20:59 01/04/18 22:45 Clonazepam (KlonoPIN) 1 mg BEDTIME ORAL 01/03/18 21:00 01/10/18 20:59 01/04/18 22:45 Clonidine HCl (Catapres Tab) 0.1 mg Q4H PRN ORAL For High Blood Pressure 01/03/18 06:15 02/02/18 06:14 01/03/18 06:44 Clopidogrel Bisulfate (Plavix) 75 mg DAILY ORAL 01/03/18 09:00 02/02/18 08:59 01/05/18 08:55 Docusate Sodium (Colace) 100 mg TWICE A DAY ORAL 01/03/18 09:00 02/02/18 08:59 01/05/18 08:55 Duloxetine HCl (Cymbalta) 60 mg DAILY ORAL 01/03/18 12:30 02/02/18 12:29 01/05/18 08:55 Gabapentin (Neurontin) 600 mg THREE TIMES A DAY ORAL 01/03/18 13:00 02/02/18 12:59 01/05/18 13:44 Heparin Sodium (Porcine) (Heparin 5000 units/ml) 5,000 units EVERY 8 HOURS SUBQ 01/03/18 14:00 02/02/18 13:59 01/05/18 13:46 Irbesartan (Avapro) 150 mg DAILY ORAL 01/05/18 09:00 02/02/18 08:59 Magnesium Hydroxide (Mom) 30 ml DAILY PRN ORAL Constipation 01/03/18 01:45 02/02/18 01:44 Metoprolol Succinate (Toprol XL) 50 mg Q12HR ORAL 01/04/18 21:00 02/02/18 11:59 01/04/18 22:45 Non-Formulary Medication (Non-Formulary Med) 1 ea DAILY ORAL 01/03/18 09:00 02/02/18 08:59 UNV Quetiapine Fumarate (SEROquel) 12.5 mg Q4H PRN ORAL Agitation 01/03/18 14:30 02/02/18 14:29 Sodium Chloride 1,000 ml @ 50 mls/hr Q20H IV 01/04/18 09:00 02/03/18 08:59 01/05/18 05:10 Terazosin HCl (Hytrin) 2 mg DAILY ORAL 01/03/18 09:00 02/02/18 08:59 01/04/18 09:36 Tiotropium [place] (Spiriva Inhaler) 1 puff DAILY INH 01/03/18 09:00 02/02/18 08:59 01/05/18 08:00 Allergies: Coded Allergies: SULFA (SULFONAMIDE ANTIBIOTICS) (Unverified Allergy, Unknown, 01/03/18) ROS Limited/Unobtainable: No Constitutional: Reports: no symptoms HEENT: Reports: no symptoms Cardiovascular: Reports: no symptoms Respiratory: Reports: no symptoms Gastrointestinal/Abdominal: Reports: no symptoms Genitourinary: Reports: no symptoms Neurologic/Psychiatric: Reports: other Subjective 62 YO F with history of cerebral vascular accident, admitted with altered mental status. Aphasic. Cover for Int [facility]-Dr Nunez Objective Last Vital Signs Date Time Temp Pulse Resp B/P (MAP) Pulse Ox O2 Delivery O2 Flow Rate FiO2 01/05/18 12:00 93 01/05/18 11:50 97.9 18 114/61 100 Room Air 97.9 01/05/18 08:03 21 Laboratory Tests Test 01/05/18 05:30 01/05/18 07:14 Urine Color Yellow Urine Appearance Clear Urine pH 7 (4.5-8.0) Urine Specific [place] 1.010 (1.005-1.035) Urine Protein 3+ (NEGATIVE) H Urine Glucose (UA) Negative (NEGATIVE) Urine Ketones Negative (NEGATIVE) Urine Occult Blood 1+ (NEGATIVE) H Urine Nitrite Negative (NEGATIVE) Urine Bilirubin Negative (NEGATIVE) Urine Urobilinogen 4 MG/DL (0.0-1.0) H Urine Leukocyte Esterase 1+ (NEGATIVE) H Urine RBC 0-2 /HPF (0 - 2) Urine WBC 5-10 /HPF (0 - 2) H Urine Squamous Epithelial Cells Few /LPF (NONE/OCC) Urine Bacteria Occasional /HPF (NONE) White Blood Count 13.5 K/UL (4.8-10.8) H Red Blood Count 4.30 M/UL (4.20-5.40) Hemoglobin 12.2 G/DL (12.0-16.0) Hematocrit 35.4 % (37.0-47.0) L Mean Corpuscular Volume 82 FL (80-99) Mean Corpuscular Hemoglobin 28.3 PG (27.0-31.0) Mean Corpuscular Hemoglobin Concent 34.4 G/DL (32.0-36.0) Red Cell Distribution Width 11.8 % (11.6-14.8) Platelet Count 215 K/UL (150-450) Mean Platelet Volume 7.0 FL (6.5-10.1) Neutrophils (%) (Auto) 80.0 % (45.0-75.0) H Lymphocytes (%) (Auto) 10.6 % (20.0-45.0) L Monocytes (%) (Auto) 8.5 % (1.0-10.0) Eosinophils (%) (Auto) 0.5 % (0.0-3.0) Basophils (%) (Auto) 0.4 % (0.0-2.0) Sodium Level 130 MMOL/L (136-145) L Potassium Level 3.7 MMOL/L (3.5-5.1) Chloride Level 101 MMOL/L (98-107) Carbon Dioxide Level 21 MMOL/L (21-32) Anion Gap 8 mmol/L (5-15) Blood Urea Nitrogen 27 mg/dL (7-18) H Creatinine 1.2 MG/DL (0.55-1.30) Estimat Glomerular Filtration Rate 45.7 mL/min (>60) Glucose Level 158 MG/DL (74-106) H Calcium Level 8.5 MG/DL (8.5-10.1) Microbiology Date/Time Source Procedure Growth Status 01/03/18 04:00 Nasal Nares MRSA Culture - Final NO METHICILLIN RESISTANT STAPH AUREUS... Complete 01/03/18 04:00 Rectum VRE Culture - Final NO VANCOMYCIN RESISTANT ENTEROCOCCUS ... Complete Intake and Output 01/04/18 01/05/18 19:00 07:00 Intake Total 460 ml Output Total 1000 ml Balance 460 ml -1000 ml Intake Oral 360 ml IV Total 100 ml Output Urine Total 1000 ml # Voids 2 # Bowel Movements 2 Objective General Appearance: WD/WN, no apparent distress, alert EENT: PERRL/EOMI, normal ENT inspection Neck: non-tender, normal alignment, supple, normal inspection Cardiovascular: normal peripheral pulses, normal rate, regular rhythm, no gallop/murmur, no JVD Respiratory/Chest: chest wall non-tender, lungs clear, normal breath sounds, no respiratory distress, no accessory muscle use Abdomen: normal bowel sounds, non tender, soft, no organomegaly, no mass Extremities: normal range of motion, non-tender Edema: trace edema 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 Await neruology consult. (3) Cerebral vascular disease (4) Hypertension, uncontrolled Assessment & Plan: Continue metoprolol and avapro. (5) Hypercholesteremia Assessment & Plan: Continue lipitor. (6) Pneumonia (7) Bipolar disorder Assessment & Plan: See psych note. (8) Hyponatremia Assessment & Plan: Continue norm saline IV Status: not improved Constantin Benson MD Jan 05, 2018 14:30
[2018-01-05 16:22] VITALS: BP 134/82
[2018-01-05 20:00] VITALS: BP 153/73
[2018-01-05] MEDS: Atorvastatin 80mg tab ORAL SCH (20:43)
[2018-01-06] VITALS: BP 150/84
[2018-01-06 04:00] VITALS: BP 145/84
[2018-01-06] MEDS: Heparin 5000 units/ml inj SUBQ SCH ×3 (05:58→22:30)
[2018-01-06] MEDS: Metoprolol Succinate XL 50mg tab ORAL SCH ×2 (09:00→22:25)
[2018-01-06] MEDS: Irbesartan 150mg tablet ORAL SCH (09:00)
[2018-01-06] MEDS: Docusate 100mg cap ORAL SCH ×2 (09:00→18:00)
[2018-01-06] MEDS: Terazosin 1mg cap ORAL SCH (09:00)
[2018-01-06] MEDS: Aspirin EC 81mg tab ORAL SCH (09:00)
[2018-01-06] MEDS: DULoxetine 30mg cap ORAL SCH (09:00)
--- NOTE | 2018-01-06 09:15 | Cardiology Report ---
APPROVED REPORT EXAM: Two-dimensional and M-mode echocardiogram with Doppler and color Doppler. INDICATION Altered mental status M-Mode DIMENSIONS IVSd1.0 (0.7-1.1cm)Left Atrium (MM)4.0 (1.6-4.0cm) LVDd4.5 (3.5-5.6cm)Aortic Root2.5 (2.0-3.7cm) PWd1.4 (0.7-1.1cm)Aortic Cusp Exc.1.6 (1.5-2.0cm) LVDs2.9 (2.5-4.0cm) PWs1.4 cm Technically difficult study due to poor acoustical windows. Normal left ventricular chamber size, systolic function and wall motion. Left ventricular ejection fraction estimated to be 60-65 %. No evidence of left ventricular hypertrophy. No evidence of pericardial or pleural effusion. All other cardiac chamber sizes are within normal limits. Focal aortic valve sclerosis with adequate cusp excursion. Thickened mitral valve leaflets with normal excursion. Moderate mitral annulus and aortic root calcification. Pulmonic valve not well visualized. Normal tricuspid valve structure. IVC is not obtainable. A color flow and spectral Doppler study was performed and revealed: No aortic regurgitation. No mitral regurgitation. Mitral diastolic velocities suggest reduced left ventricular relaxation c/w diastolic dysfunction grade 1. No tricuspid regurgitation.
[2018-01-06] MEDS ORDERED: Haloperidol 5mg/ml Inj IM SCH ×2 (09:30→17:30)
[2018-01-06] MEDS ORDERED: LORazepam Inj 2mg/ml 1ml IM SCH ×2 (09:30→17:15)
[2018-01-06] MEDS ORDERED: DiphenhydrAMINE 50mg/ml Inj IM SCH ×3 (09:30→17:15)
--- NOTE | 2018-01-06 11:13 | General Progress Note ---
Assessment/Plan Status: unchanged Assessment/Plan Bipolar d/o Anxiety Encephalopathy the pt may not leave AMA the pt lacks capacity to make decisions -Cymbalta -Klonopin -Seroquel prn Subjective Neurologic/Psychiatric: Reports: anxiety, depressed, emotional problems Allergies: Coded Allergies: SULFA (SULFONAMIDE ANTIBIOTICS) (Unverified Allergy, Unknown, 01/03/18) Subjective the pt received a cocktail shot for severe agitation Objective Last 24 Hour Vital Signs Date Time Temp Pulse Resp B/P (MAP) Pulse Ox O2 Delivery O2 Flow Rate FiO2 01/06/18 09:43 Room Air 21 01/06/18 09:42 Room Air 21 01/06/18 04:00 97.9 84 22 145/84 96 Room Air 97.9 01/06/18 04:00 73 01/06/18 00:00 84 01/06/18 00:00 98.0 77 21 150/84 93 Room Air 98.0 01/05/18 21:00 84 86 106 01/05/18 20:42 92 153/73 01/05/18 20:00 98.1 92 22 153/73 95 Room Air 98.1 01/05/18 20:00 95 01/05/18 16:22 97.3 84 18 134/82 100 Room Air 97.3 01/05/18 16:00 85 01/05/18 12:00 93 01/05/18 11:50 97.9 92 18 114/61 100 Room Air 97.9 Intake and Output 01/05/18 01/06/18 19:00 07:00 Intake Total 240 ml Balance 240 ml Intake Oral 240 ml # Voids 2 4 # Bowel Movements 1 Height (Feet): 5 Height (Inches): 3.00 Weight (Pounds): 194 General Appearance: no apparent distress, alert Kathleen Varma MD Jan 06, 2018 11:13
--- NOTE | 2018-01-06 12:07 | Internal Med Progress Note ---
Subjective Date of Service: Jan 06, 2018 Physician Name Constantin Benson Attending Physician Ravi Nunez MD Current Medications Medications (Trade) Dose Ordered Sig/Crystal Route PRN Reason Start Time Stop Time Status Last Admin Dose Admin Acetaminophen (Tylenol) 650 mg Q6H PRN ORAL Fever/Headache/Mild Pain 01/03/18 01:45 02/02/18 01:44 Albuterol Sulfate (Proventil MDI) 2 puff Q4H PRN INH Shortness of breath 01/03/18 01:45 02/02/18 01:44 Aspirin (Ecotrin) 81 mg DAILY ORAL 01/03/18 09:00 02/02/18 08:59 01/05/18 08:55 Atorvastatin Calcium (Lipitor) 80 mg BEDTIME ORAL 01/03/18 21:00 02/02/18 20:59 01/05/18 20:43 Clonazepam (KlonoPIN) 1 mg BEDTIME ORAL 01/03/18 21:00 01/10/18 20:59 01/05/18 20:42 Clonidine HCl (Catapres Tab) 0.1 mg Q4H PRN ORAL For High Blood Pressure 01/03/18 06:15 02/02/18 06:14 01/03/18 06:44 Clopidogrel Bisulfate (Plavix) 75 mg DAILY ORAL 01/03/18 09:00 02/02/18 08:59 01/05/18 08:55 Docusate Sodium (Colace) 100 mg TWICE A DAY ORAL 01/03/18 09:00 02/02/18 08:59 01/05/18 18:18 Duloxetine HCl (Cymbalta) 60 mg DAILY ORAL 01/03/18 12:30 02/02/18 12:29 01/05/18 08:55 Gabapentin (Neurontin) 600 mg THREE TIMES A DAY ORAL 01/03/18 13:00 02/02/18 12:59 01/05/18 18:18 Heparin Sodium (Porcine) (Heparin 5000 units/ml) 5,000 units EVERY 8 HOURS SUBQ 01/03/18 14:00 02/02/18 13:59 01/06/18 05:58 Irbesartan (Avapro) 150 mg DAILY ORAL 01/05/18 09:00 02/02/18 08:59 Magnesium Hydroxide (Mom) 30 ml DAILY PRN ORAL Constipation 01/03/18 01:45 02/02/18 01:44 Metoprolol Succinate (Toprol XL) 50 mg Q12HR ORAL 01/04/18 21:00 02/02/18 11:59 01/05/18 20:42 Non-Formulary Medication (Non-Formulary Med) 1 ea DAILY ORAL 01/03/18 09:00 02/02/18 08:59 UNV Quetiapine Fumarate (SEROquel) 12.5 mg Q4H PRN ORAL Agitation 01/03/18 14:30 02/02/18 14:29 01/06/18 06:42 Sodium Chloride 1,000 ml @ 100 mls/hr Q10H IV 01/05/18 15:00 02/04/18 14:59 01/06/18 01:00 Terazosin HCl (Hytrin) 2 mg DAILY ORAL 01/03/18 09:00 02/02/18 08:59 01/04/18 09:36 Tiotropium [place] (Spiriva Inhaler) 1 puff DAILY INH 01/03/18 09:00 02/02/18 08:59 01/05/18 08:00 Allergies: Coded Allergies: SULFA (SULFONAMIDE ANTIBIOTICS) (Unverified Allergy, Unknown, 01/03/18) ROS Limited/Unobtainable: No Constitutional: Reports: no symptoms HEENT: Reports: no symptoms Cardiovascular: Reports: no symptoms Respiratory: Reports: no symptoms Gastrointestinal/Abdominal: Reports: no symptoms Genitourinary: Reports: no symptoms Neurologic/Psychiatric: Reports: no symptoms Subjective 62 YO F with history of cerebral vascular accident, admitted with altered mental status. Aphasic. Cover for Int Med-Dr Nunez Objective Last Vital Signs Date Time Temp Pulse Resp B/P (MAP) Pulse Ox O2 Delivery O2 Flow Rate FiO2 01/06/18 09:43 Room Air 21 01/06/18 04:00 97.9 84 22 145/84 96 97.9 Microbiology Date/Time Source Procedure Growth Status 01/04/18 10:00 Blood Blood Culture - Preliminary NO GROWTH AFTER 24 HOURS Resulted 01/04/18 09:40 Blood Blood Culture - Preliminary NO GROWTH AFTER 24 HOURS Resulted Intake and Output 01/05/18 01/06/18 19:00 07:00 Intake Total 240 ml Balance 240 ml Intake Oral 240 ml # Voids 2 4 # Bowel Movements 1 Objective General Appearance: WD/WN, no apparent distress, alert EENT: PERRL/EOMI, normal ENT inspection Neck: non-tender, normal alignment, supple, normal inspection Cardiovascular: normal peripheral pulses, normal rate, regular rhythm, no gallop/murmur, no JVD Respiratory/Chest: chest wall non-tender, lungs clear, normal breath sounds, no respiratory distress, no accessory muscle use Abdomen: normal bowel sounds, non tender, soft, no organomegaly, no mass Extremities: normal range of motion, non-tender Edema: trace edema 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 Await neruology consult. (3) Cerebral vascular disease (4) Hypertension, uncontrolled Assessment & Plan: Continue metoprolol and avapro. (5) Hypercholesteremia Assessment & Plan: Continue lipitor. (6) Pneumonia (7) Bipolar disorder Assessment & Plan: See psych note. (8) Hyponatremia Assessment & Plan: Continue norm saline IV Status: not improved Constantin Benson MD Jan 06, 2018 12:07
--- NOTE | 2018-01-06 12:24 | Pulmonology Progress Note ---
Assessment/Plan Problems: (1) Altered consciousness (2) Hypertension, uncontrolled (3) Cerebral vascular accident (4) Bipolar disorder (5) Hyponatremia Assessment/Plan aspiration precaution monitor BP check electrolytes pt/ot note appreciated might need placement risk stratification for CVA Subjective ROS Limited/Unobtainable: No Constitutional: Reports: no symptoms HEENT: Repors: no symptoms Respiratory: Reports: no symptoms Allergies: Coded Allergies: SULFA (SULFONAMIDE ANTIBIOTICS) (Unverified Allergy, Unknown, 01/03/18) Objective Last 24 Hour Vital Signs Date Time Temp Pulse Resp B/P (MAP) Pulse Ox O2 Delivery O2 Flow Rate FiO2 01/06/18 09:43 Room Air 21 01/06/18 09:42 Room Air 21 01/06/18 04:00 97.9 84 22 145/84 96 Room Air 97.9 01/06/18 04:00 73 01/06/18 00:00 84 01/06/18 00:00 98.0 77 21 150/84 93 Room Air 98.0 01/05/18 21:00 84 86 106 01/05/18 20:42 92 153/73 01/05/18 20:00 98.1 92 22 153/73 95 Room Air 98.1 01/05/18 20:00 95 01/05/18 16:22 97.3 84 18 134/82 100 Room Air 97.3 01/05/18 16:00 85 Intake and Output 01/05/18 01/06/18 19:00 07:00 Intake Total 240 ml Balance 240 ml Intake Oral 240 ml # Voids 2 4 # Bowel Movements 1 General Appearance: WD/WN HEENT: normocephalic, atraumatic Breasts: no masses Cardiovascular: normal rate Abdomen: normal bowel sounds, no mass Extremities: no cyanosis Skin: no rash Microbiology Date/Time Source Procedure Growth Status 01/04/18 10:00 Blood Blood Culture - Preliminary NO GROWTH AFTER 24 HOURS Resulted 01/04/18 09:40 Blood Blood Culture - Preliminary NO GROWTH AFTER 24 HOURS Resulted Current Medications Medications (Trade) Dose Ordered Sig/Crystal Route PRN Reason Start Time Stop Time Status Last Admin Dose Admin Acetaminophen (Tylenol) 650 mg Q6H PRN ORAL Fever/Headache/Mild Pain 01/03/18 01:45 02/02/18 01:44 Albuterol Sulfate (Proventil MDI) 2 puff Q4H PRN INH Shortness of breath 01/03/18 01:45 02/02/18 01:44 Aspirin (Ecotrin) 81 mg DAILY ORAL 01/03/18 09:00 02/02/18 08:59 01/05/18 08:55 Atorvastatin Calcium (Lipitor) 80 mg BEDTIME ORAL 01/03/18 21:00 02/02/18 20:59 01/05/18 20:43 Clonazepam (KlonoPIN) 1 mg BEDTIME ORAL 01/03/18 21:00 01/10/18 20:59 01/05/18 20:42 Clonidine HCl (Catapres Tab) 0.1 mg Q4H PRN ORAL For High Blood Pressure 01/03/18 06:15 02/02/18 06:14 01/03/18 06:44 Clopidogrel Bisulfate (Plavix) 75 mg DAILY ORAL 01/03/18 09:00 02/02/18 08:59 01/05/18 08:55 Docusate Sodium (Colace) 100 mg TWICE A DAY ORAL 01/03/18 09:00 02/02/18 08:59 01/05/18 18:18 Duloxetine HCl (Cymbalta) 60 mg DAILY ORAL 01/03/18 12:30 02/02/18 12:29 01/05/18 08:55 Gabapentin (Neurontin) 600 mg THREE TIMES A DAY ORAL 01/03/18 13:00 02/02/18 12:59 01/05/18 18:18 Heparin Sodium (Porcine) (Heparin 5000 units/ml) 5,000 units EVERY 8 HOURS SUBQ 01/03/18 14:00 02/02/18 13:59 01/06/18 05:58 Irbesartan (Avapro) 150 mg DAILY ORAL 01/05/18 09:00 02/02/18 08:59 Magnesium Hydroxide (Mom) 30 ml DAILY PRN ORAL Constipation 01/03/18 01:45 02/02/18 01:44 Metoprolol Succinate (Toprol XL) 50 mg Q12HR ORAL 01/04/18 21:00 02/02/18 11:59 01/05/18 20:42 Non-Formulary Medication (Non-Formulary Med) 1 ea DAILY ORAL 01/03/18 09:00 02/02/18 08:59 UNV Quetiapine Fumarate (SEROquel) 12.5 mg Q4H PRN ORAL Agitation 01/03/18 14:30 02/02/18 14:29 01/06/18 06:42 Sodium Chloride 1,000 ml @ 100 mls/hr Q10H IV 01/05/18 15:00 02/04/18 14:59 01/06/18 01:00 Terazosin HCl (Hytrin) 2 mg DAILY ORAL 01/03/18 09:00 02/02/18 08:59 01/04/18 09:36 Tiotropium [place] (Spiriva Inhaler) 1 puff DAILY INH 01/03/18 09:00 02/02/18 08:59 01/05/18 08:00 Jalen Cantrell MD Jan 06, 2018 12:24
--- NOTE | 2018-01-06 17:14 | Consultation ---
History of Present Illness General Date patient seen: Jan 06, 2018 Time patient seen: 12:15 Chief Complaint: AMS Present Illness HPI 62 YO F with history of cerebral vascular accident, admitted with altered mental status. She has a history of HTN and HDL. Echocardiogy with normal LV function and normal valvular function. MRI revealed acute on chronic CVA. Allergies: Coded Allergies: SULFA (SULFONAMIDE ANTIBIOTICS) (Unverified Allergy, Unknown, 01/03/18) Medication History Scheduled Aspirin Ec* (Aspirin Ec*), 81 MG ORAL DAILY, (Reported) Atorvastatin Calcium* (Atorvastatin Calcium*), 80 MG ORAL BEDTIME, (Reported) Brexpiprazole (Rexulti), 3 MG PO DAILY, (Reported) Clonazepam* (Klonopin*), 1 MG ORAL HS, (Reported) Clopidogrel* (Clopidogrel*), 75 MG ORAL DAILY, (Reported) Docusate Sodium* (Colace*), 100 MG ORAL TWICE A DAY, (Reported) Duloxetine Hcl* (Cymbalta*), 60 MG ORAL DAILY, (Reported) Gabapentin* (Gabapentin*), 600 MG ORAL THREE TIMES A DAY, (Reported) Hydrochlorothiazide* (Hydrochlorothiazide*), 25 MG ORAL DAILY, (Reported) Lisinopril (Lisinopril*), 40 MG ORAL DAILY, (Reported) Metoprolol Succinate* (Metoprolol Succinate*), 50 MG ORAL DAILY, (Reported) Telmisartan (Telmisartan), 80 MG PO DAILY, (Reported) Terazosin Hcl* (Hytrin*), 2 MG ORAL DAILY, (Reported) Tiotropium [place]* (Spiriva*), 1 PUFF INH DAILY, (Reported) Scheduled PRN Acetaminophen* (Acetaminophen 325MG Tablet*), 650 MG ORAL Q6H PRN for Fever/ Headache/Mild Pain, (Reported) Albuterol Sulfate* (Proair Hfa*), 2 PUFFS INH Q4HR PRN for Shortness of breath, (Reported) Magnesium Hydroxide* (Milk Of Magnesia*), 30 ML ORAL DAILY PRN for Constipation, (Reported) Patient History Healthcare decision maker Resuscitation status Full Code Advanced Directive on File Review of Systems Constitutional: Reports: no symptoms Eye: Reports: no symptoms ENT: Reports: no symptoms Respiratory: Reports: no symptoms Cardiovascular: Reports: no symptoms Gastrointestinal: Reports: no symptoms Genitourinary: Reports: no symptoms Musculoskeletal: Reports: no symptoms Skin: Reports: no symptoms Psychiatric: Reports: no symptoms Neurological: Reports: no symptoms Endocrine: Reports: no symptoms Hematologic/Lymphatic: Reports: no symptoms Physical Exam General Appearance: no apparent distress Lines, tubes and drains: peripheral HEENT: normocephalic Neck: non-tender Respiratory/Chest: chest wall non-tender, lungs clear Cardiovascular/Chest: normal peripheral pulses Abdomen: normal bowel sounds Extremities: normal range of motion Skin Exam: normal pigmentation 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: cook 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 Last 24 Hour Vital Signs Date Time Temp Pulse Resp B/P (MAP) Pulse Ox O2 Delivery O2 Flow Rate FiO2 01/06/18 09:43 Room Air 21 01/06/18 09:42 Room Air 21 01/06/18 04:00 97.9 84 22 145/84 96 Room Air 97.9 01/06/18 04:00 73 01/06/18 00:00 84 01/06/18 00:00 98.0 77 21 150/84 93 Room Air 98.0 01/05/18 21:00 84 86 106 01/05/18 20:42 92 153/73 01/05/18 20:00 98.1 92 22 153/73 95 Room Air 98.1 01/05/18 20:00 95 Intake and Output 01/05/18 01/06/18 19:00 07:00 Intake Total 240 ml Balance 240 ml Intake Oral 240 ml # Voids 2 4 # Bowel Movements 1 Height (Feet): 5 Height (Inches): 3.00 Weight (Pounds): 194 Medications Current Medications Medications (Trade) Dose Ordered Sig/Crystal Route PRN Reason Start Time Stop Time Status Last Admin Dose Admin Acetaminophen (Tylenol) 650 mg Q6H PRN ORAL Fever/Headache/Mild Pain 01/03/18 01:45 02/02/18 01:44 Albuterol Sulfate (Proventil MDI) 2 puff Q4H PRN INH Shortness of breath 01/03/18 01:45 02/02/18 01:44 Aspirin (Ecotrin) 81 mg DAILY ORAL 01/03/18 09:00 02/02/18 08:59 01/05/18 08:55 Atorvastatin Calcium (Lipitor) 80 mg BEDTIME ORAL 01/03/18 21:00 02/02/18 20:59 01/05/18 20:43 Clonazepam (KlonoPIN) 1 mg BEDTIME ORAL 01/03/18 21:00 01/10/18 20:59 01/05/18 20:42 Clonidine HCl (Catapres Tab) 0.1 mg Q4H PRN ORAL For High Blood Pressure 01/03/18 06:15 02/02/18 06:14 01/03/18 06:44 Clopidogrel Bisulfate (Plavix) 75 mg DAILY ORAL 01/03/18 09:00 02/02/18 08:59 01/05/18 08:55 Docusate Sodium (Colace) 100 mg TWICE A DAY ORAL 01/03/18 09:00 02/02/18 08:59 01/05/18 18:18 Duloxetine HCl (Cymbalta) 60 mg DAILY ORAL 01/03/18 12:30 02/02/18 12:29 01/05/18 08:55 Gabapentin (Neurontin) 600 mg THREE TIMES A DAY ORAL 01/03/18 13:00 02/02/18 12:59 01/05/18 18:18 Heparin Sodium (Porcine) (Heparin 5000 units/ml) 5,000 units EVERY 8 HOURS SUBQ 01/03/18 14:00 02/02/18 13:59 01/06/18 05:58 Irbesartan (Avapro) 150 mg DAILY ORAL 01/05/18 09:00 02/02/18 08:59 Magnesium Hydroxide (Mom) 30 ml DAILY PRN ORAL Constipation 01/03/18 01:45 02/02/18 01:44 Metoprolol Succinate (Toprol XL) 50 mg Q12HR ORAL 01/04/18 21:00 02/02/18 11:59 01/05/18 20:42 Non-Formulary Medication (Non-Formulary Med) 1 ea DAILY ORAL 01/03/18 09:00 02/02/18 08:59 UNV Quetiapine Fumarate (SEROquel) 12.5 mg Q4H PRN ORAL Agitation 01/03/18 14:30 02/02/18 14:29 01/06/18 06:42 Sodium Chloride 1,000 ml @ 100 mls/hr Q10H IV 01/05/18 15:00 02/04/18 14:59 01/06/18 01:00 Terazosin HCl (Hytrin) 2 mg DAILY ORAL 01/03/18 09:00 02/02/18 08:59 01/04/18 09:36 Tiotropium [place] (Spiriva Inhaler) 1 puff DAILY INH 01/03/18 09:00 02/02/18 08:59 01/05/18 08:00 Assessment/Plan Status: stable Assessment/Plan Assessment (1) Altered consciousness (2) Hypertension, uncontrolled (3) Cerebral vascular accident (4) Bipolar disorder (5) Hyponatremia (6) Congestive heart failure, diastolic Plan BP control with Avapro, metoprolol, terazosin Continue atorvastatin Aspirin for primary prevention Plavix for acute CVA Outpatient stress test for risk stratification Echo reviewed Salt restriction Sony Pride M.D. Jan 06, 2018 17:14
[2018-01-06] MEDS ORDERED: Haloperidol Decanoate 50mg Inj IM ONE (17:15)
[2018-01-06] MEDS ORDERED: Haloperidol Lactate 10 MG in D5W 55 ML IVPB ONE (17:30)
--- NOTE | 2018-01-06 17:49 | Consultation ---
History of Present Illness General Date patient seen: Jan 04, 2018 Present Illness HPI 62-year-old white female, who presents with chief complaint of altered mental status. the pt has been agitated and confused waxing and waning of consciousness Allergies: Coded Allergies: SULFA (SULFONAMIDE ANTIBIOTICS) (Unverified Allergy, Unknown, 01/03/18) Medication History Scheduled Aspirin Ec* (Aspirin Ec*), 81 MG ORAL DAILY, (Reported) Atorvastatin Calcium* (Atorvastatin Calcium*), 80 MG ORAL BEDTIME, (Reported) Brexpiprazole (Rexulti), 3 MG PO DAILY, (Reported) Clonazepam* (Klonopin*), 1 MG ORAL HS, (Reported) Clopidogrel* (Clopidogrel*), 75 MG ORAL DAILY, (Reported) Docusate Sodium* (Colace*), 100 MG ORAL TWICE A DAY, (Reported) Duloxetine Hcl* (Cymbalta*), 60 MG ORAL DAILY, (Reported) Gabapentin* (Gabapentin*), 600 MG ORAL THREE TIMES A DAY, (Reported) Hydrochlorothiazide* (Hydrochlorothiazide*), 25 MG ORAL DAILY, (Reported) Lisinopril (Lisinopril*), 40 MG ORAL DAILY, (Reported) Metoprolol Succinate* (Metoprolol Succinate*), 50 MG ORAL DAILY, (Reported) Telmisartan (Telmisartan), 80 MG PO DAILY, (Reported) Terazosin Hcl* (Hytrin*), 2 MG ORAL DAILY, (Reported) Tiotropium [place]* (Spiriva*), 1 PUFF INH DAILY, (Reported) Scheduled PRN Acetaminophen* (Acetaminophen 325MG Tablet*), 650 MG ORAL Q6H PRN for Fever/ Headache/Mild Pain, (Reported) Albuterol Sulfate* (Proair Hfa*), 2 PUFFS INH Q4HR PRN for Shortness of breath, (Reported) Magnesium Hydroxide* (Milk Of Magnesia*), 30 ML ORAL DAILY PRN for Constipation, (Reported) Patient History History Provided By: Patient, Medical Record, PMD Healthcare decision maker Resuscitation status Full Code Advanced Directive on File Past Medical/Surgical History Past Medical/Surgical History: (1) Altered consciousness (2) ALOC, HTN, Pneumonia (3) Bipolar disorder (4) Hypercholesteremia (5) Altered mental status (6) Pneumonia (7) Cerebral vascular accident (8) Cerebral vascular disease (9) Hypertension, uncontrolled (10) Hyponatremia Review of Systems Psychiatric: Reports: prior hx, anxiety, depressed feelings, emotional problems , hallucinations Physical Exam General Appearance: no apparent distress, lethargic, confused Last 24 Hour Vital Signs Date Time Temp Pulse Resp B/P (MAP) Pulse Ox O2 Delivery O2 Flow Rate FiO2 01/06/18 09:43 Room Air 21 01/06/18 09:42 Room Air 21 01/06/18 04:00 97.9 84 22 145/84 96 Room Air 97.9 01/06/18 04:00 73 01/06/18 00:00 84 01/06/18 00:00 98.0 77 21 150/84 93 Room Air 98.0 01/05/18 21:00 84 86 106 01/05/18 20:42 92 153/73 01/05/18 20:00 98.1 92 22 153/73 95 Room Air 98.1 01/05/18 20:00 95 Intake and Output 01/05/18 01/06/18 19:00 07:00 Intake Total 240 ml Balance 240 ml Intake Oral 240 ml # Voids 2 4 # Bowel Movements 1 Height (Feet): 5 Height (Inches): 3.00 Weight (Pounds): 194 Medications Current Medications Medications (Trade) Dose Ordered Sig/Crystal Route PRN Reason Start Time Stop Time Status Last Admin Dose Admin Acetaminophen (Tylenol) 650 mg Q6H PRN ORAL Fever/Headache/Mild Pain 01/03/18 01:45 02/02/18 01:44 Albuterol Sulfate (Proventil MDI) 2 puff Q4H PRN INH Shortness of breath 01/03/18 01:45 02/02/18 01:44 Aspirin (Ecotrin) 81 mg DAILY ORAL 01/03/18 09:00 02/02/18 08:59 01/05/18 08:55 Atorvastatin Calcium (Lipitor) 80 mg BEDTIME ORAL 01/03/18 21:00 02/02/18 20:59 01/05/18 20:43 Clonazepam (KlonoPIN) 1 mg BEDTIME ORAL 01/03/18 21:00 01/10/18 20:59 01/05/18 20:42 Clonidine HCl (Catapres Tab) 0.1 mg Q4H PRN ORAL For High Blood Pressure 01/03/18 06:15 02/02/18 06:14 01/03/18 06:44 Clopidogrel Bisulfate (Plavix) 75 mg DAILY ORAL 01/03/18 09:00 02/02/18 08:59 01/05/18 08:55 Diphenhydramine HCl (Benadryl) 50 mg ONCE IM 01/06/18 17:15 01/06/18 18:00 01/06/18 17:41 Docusate Sodium (Colace) 100 mg TWICE A DAY ORAL 01/03/18 09:00 02/02/18 08:59 01/05/18 18:18 Duloxetine HCl (Cymbalta) 60 mg DAILY ORAL 01/03/18 12:30 02/02/18 12:29 01/05/18 08:55 Gabapentin (Neurontin) 600 mg THREE TIMES A DAY ORAL 01/03/18 13:00 02/02/18 12:59 01/05/18 18:18 Haloperidol Lactate (Haldol) 10 mg ONCE IM 01/06/18 17:30 01/06/18 18:30 01/06/18 17:41 Heparin Sodium (Porcine) (Heparin 5000 units/ml) 5,000 units EVERY 8 HOURS SUBQ 01/03/18 14:00 02/02/18 13:59 01/06/18 05:58 Irbesartan (Avapro) 150 mg DAILY ORAL 01/05/18 09:00 02/02/18 08:59 Lorazepam (Ativan 2mg/ml 1ml) 2 mg ONCE IM 01/06/18 17:15 01/06/18 18:00 01/06/18 17:41 Magnesium Hydroxide (Mom) 30 ml DAILY PRN ORAL Constipation 01/03/18 01:45 02/02/18 01:44 Metoprolol Succinate (Toprol XL) 50 mg Q12HR ORAL 01/04/18 21:00 02/02/18 11:59 01/05/18 20:42 Non-Formulary Medication (Non-Formulary Med) 1 ea DAILY ORAL 01/03/18 09:00 02/02/18 08:59 UNV Quetiapine Fumarate (SEROquel) 12.5 mg Q4H PRN ORAL Agitation 01/03/18 14:30 02/02/18 14:29 01/06/18 06:42 Sodium Chloride 1,000 ml @ 100 mls/hr Q10H IV 01/05/18 15:00 02/04/18 14:59 01/06/18 01:00 Terazosin HCl (Hytrin) 2 mg DAILY ORAL 01/03/18 09:00 02/02/18 08:59 01/04/18 09:36 Tiotropium [place] (Spiriva Inhaler) 1 puff DAILY INH 01/03/18 09:00 02/02/18 08:59 01/05/18 08:00 Assessment/Plan Assessment/Plan Bipolar d/o Anxiety Encephalopathy -Cymbalta -Klonopin -Seroquel Kathleen Bonds MD Jan 06, 2018 17:49
[2018-01-06 20:00] VITALS: BP 163/95
[2018-01-06] MEDS ORDERED: Atorvastatin 80mg tab ORAL SCH (21:00)
[2018-01-06] MEDS ORDERED: Albuterol 90mcg Inhaler 8gm INH PRN (21:45)
[2018-01-07] VITALS: BP 150/109
[2018-01-07 01:30] VITALS: BP 142/82
[2018-01-07 04:00] VITALS: BP 145/77
[2018-01-07] MEDS: Heparin 5000 units/ml inj SUBQ SCH ×2 (05:18→13:29)
[2018-01-07 08:12] VITALS: BP 160/106
[2018-01-07] MEDS: Metoprolol Succinate XL 50mg tab ORAL SCH (08:15)
[2018-01-07] MEDS ORDERED: Aspirin EC 81mg tab ORAL SCH (09:00)
[2018-01-07] MEDS ORDERED: DULoxetine 30mg cap ORAL SCH (09:00)
[2018-01-07] MEDS ORDERED: Irbesartan 150mg tablet ORAL SCH (09:00)
[2018-01-07] MEDS ORDERED: Docusate 100mg cap ORAL SCH (09:00)
[2018-01-07] MEDS ORDERED: Milk of Magnesia 30ml Ud ORAL PRN (09:00)
[2018-01-07] MEDS ORDERED: Terazosin 1mg cap ORAL SCH (09:00)
[2018-01-07 12:00] VITALS: BP 157/73
--- NOTE | 2018-01-07 13:32 | Pulmonology Progress Note ---
Assessment/Plan Problems: (1) Altered consciousness (2) Hypertension, uncontrolled (3) Cerebral vascular accident (4) Bipolar disorder (5) Hyponatremia Assessment/Plan imrpoving aspiration precaution monitor BP check electrolytes pt/ot note appreciated might need placement risk stratification for CVA dc to snif Subjective ROS Limited/Unobtainable: No Constitutional: Reports: no symptoms HEENT: Repors: no symptoms Respiratory: Reports: no symptoms Cardiovascular: Reports: no symptoms Gastrointestinal/Abdominal: Reports: no symptoms Allergies: Coded Allergies: SULFA (SULFONAMIDE ANTIBIOTICS) (Unverified Allergy, Unknown, 01/03/18) Objective Last 24 Hour Vital Signs Date Time Temp Pulse Resp B/P (MAP) Pulse Ox O2 Delivery O2 Flow Rate FiO2 01/07/18 12:00 98.9 78 19 157/73 93 98.9 01/07/18 09:19 179/101 01/07/18 09:00 89 91 100 01/07/18 08:15 96 16 99 Room Air 21 01/07/18 08:15 96 160/106 01/07/18 08:15 96 16 99 Room Air 21 01/07/18 08:14 160/106 01/07/18 08:12 98.0 96 19 160/106 100 Room Air 98.0 01/07/18 04:00 97.7 85 19 145/77 100 Room Air 97.7 01/07/18 01:30 98.3 89 18 142/82 100 Room Air 98.3 01/06/18 22:25 104 163/95 01/06/18 22:01 104 01/06/18 20:00 98.1 104 18 163/95 100 Room Air 98.1 Intake and Output 01/06/18 01/07/18 19:00 07:00 Intake Total 240 ml 1320 ml Balance 240 ml 1320 ml Intake Oral 240 ml 320 ml IV Total 1000 ml # Voids 3 2 General Appearance: WD/WN HEENT: normocephalic, atraumatic Respiratory/Chest: chest wall non-tender, lungs clear, normal breath sounds Breasts: no masses Cardiovascular: normal peripheral pulses Abdomen: normal bowel sounds Genitourinary: normal external genitalia Extremities: no cyanosis 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 Lymphatic: no neck adenopathy Current Medications Medications (Trade) Dose Ordered Sig/Crystal Route PRN Reason Start Time Stop Time Status Last Admin Dose Admin Acetaminophen (Tylenol) 650 mg Q6H PRN ORAL Fever/Headache/Mild Pain 01/06/18 19:45 02/02/18 01:44 Albuterol Sulfate (Proventil MDI) 2 puff Q4H PRN INH Shortness of breath 01/06/18 21:45 02/02/18 01:44 Aspirin (Ecotrin) 81 mg DAILY ORAL 01/07/18 09:00 02/02/18 08:59 01/07/18 08:14 Atorvastatin Calcium (Lipitor) 80 mg BEDTIME ORAL 01/06/18 21:00 02/02/18 20:59 01/06/18 22:26 Clonazepam (KlonoPIN) 1 mg BEDTIME ORAL 01/06/18 21:00 01/10/18 20:59 01/06/18 22:26 Clonidine HCl (Catapres Tab) 0.1 mg Q4H PRN ORAL For High Blood Pressure>160 01/06/18 22:15 02/02/18 06:14 01/07/18 09:19 Clopidogrel Bisulfate (Plavix) 75 mg DAILY ORAL 01/07/18 09:00 02/02/18 08:59 01/07/18 08:14 Docusate Sodium (Colace) 100 mg TWICE A DAY ORAL 01/07/18 09:00 02/02/18 08:59 01/07/18 08:15 Duloxetine HCl (Cymbalta) 60 mg DAILY ORAL 01/07/18 09:00 02/02/18 12:29 01/07/18 08:15 Gabapentin (Neurontin) 600 mg THREE TIMES A DAY ORAL 01/07/18 09:00 02/02/18 12:59 01/07/18 13:29 Heparin Sodium (Porcine) (Heparin 5000 units/ml) 5,000 units EVERY 8 HOURS SUBQ 01/06/18 22:00 02/02/18 13:59 01/07/18 13:29 Irbesartan (Avapro) 150 mg DAILY ORAL 01/07/18 09:00 02/02/18 08:59 01/07/18 08:14 Magnesium Hydroxide (Mom) 30 ml DAILY PRN ORAL Constipation 01/07/18 09:00 02/02/18 01:44 Metoprolol Succinate (Toprol XL) 50 mg Q12HR ORAL 01/06/18 21:00 02/02/18 11:59 01/07/18 08:15 Non-Formulary Medication (Non-Formulary Med) 1 ea DAILY ORAL 01/07/18 09:00 02/02/18 08:59 UNV Quetiapine Fumarate (SEROquel) 12.5 mg Q4H PRN ORAL Agitation 01/06/18 22:30 02/02/18 14:29 Sodium Chloride 1,000 ml @ 100 mls/hr Q10H IV 01/06/18 20:30 02/04/18 20:29 01/06/18 20:30 Terazosin HCl (Hytrin) 2 mg DAILY ORAL 01/07/18 09:00 02/02/18 08:59 01/07/18 08:14 Tiotropium [place] (Spiriva Inhaler) 1 puff DAILY INH 01/07/18 09:00 02/02/18 08:59 01/07/18 08:16 Jalen Cantrell MD Jan 07, 2018 13:32
--- NOTE | 2018-01-07 14:49 | Cardiology Progress Note ---
Assessment/Plan Status: stable Assessment/Plan Assessment (1) Altered consciousness (2) Hypertension, uncontrolled (3) Cerebral vascular accident (4) Bipolar disorder (5) Hyponatremia (6) Congestive heart failure, diastolic Plan BP control with Avapro, metoprolol, terazosin Continue atorvastatin Aspirin for primary prevention Plavix for acute CVA Outpatient stress test for risk stratification Echo reviewed Salt restriction Dispo planning to SNF today Subjective Cardiovascular: Reports: no symptoms Respiratory: Reports: no symptoms Gastrointestinal/Abdominal: Reports: no symptoms Genitourinary: Reports: no symptoms Subjective No acute events, Echo reviewed, Normal LV function Patient to go to SNF today Objective Last 24 Hour Vital Signs Date Time Temp Pulse Resp B/P (MAP) Pulse Ox O2 Delivery O2 Flow Rate FiO2 01/07/18 12:00 98.9 78 19 157/73 93 98.9 01/07/18 09:19 179/101 01/07/18 09:00 89 91 100 01/07/18 08:15 96 16 99 Room Air 21 01/07/18 08:15 96 160/106 01/07/18 08:15 96 16 99 Room Air 21 01/07/18 08:14 160/106 01/07/18 08:12 98.0 96 19 160/106 100 Room Air 98.0 01/07/18 04:00 97.7 85 19 145/77 100 Room Air 97.7 01/07/18 01:30 98.3 89 18 142/82 100 Room Air 98.3 01/06/18 22:25 104 163/95 01/06/18 22:01 104 01/06/18 20:00 98.1 104 18 163/95 100 Room Air 98.1 General Appearance: no apparent distress EENT: PERRL/EOMI Neck: non-tender Rhythm: SB Cardiovascular: normal peripheral pulses Respiratory/Chest: lungs clear Abdomen: normal bowel sounds Extremities: normal range of motion Neurologic: legal mediator II-XII grossly normal Intake and Output 01/06/18 01/07/18 19:00 07:00 Intake Total 240 ml 1320 ml Balance 240 ml 1320 ml Intake Oral 240 ml 320 ml IV Total 1000 ml # Voids 3 2 Sony Pride M.D. Jan 07, 2018 14:49
--- NOTE | 2018-01-07 15:45 | General Progress Note ---
Assessment/Plan Status: stable, progressing Assessment/Plan Bipolar d/o Anxiety Encephalopathy the pt may not leave AMA the pt lacks capacity to make decisions -Cymbalta -Klonopin -Seroquel prn Subjective Date patient seen: Jan 07, 2018 Neurologic/Psychiatric: Reports: anxiety, depressed, emotional problems Allergies: Coded Allergies: SULFA (SULFONAMIDE ANTIBIOTICS) (Unverified Allergy, Unknown, 01/03/18) Subjective the pt received a cocktail shot for severe agitation yesterday calmer today Objective Last 24 Hour Vital Signs Date Time Temp Pulse Resp B/P (MAP) Pulse Ox O2 Delivery O2 Flow Rate FiO2 01/07/18 12:00 98.9 78 19 157/73 93 98.9 01/07/18 09:19 179/101 01/07/18 09:00 89 91 100 01/07/18 08:15 96 16 99 Room Air 21 01/07/18 08:15 96 160/106 01/07/18 08:15 96 16 99 Room Air 21 01/07/18 08:14 160/106 01/07/18 08:12 98.0 96 19 160/106 100 Room Air 98.0 01/07/18 04:00 97.7 85 19 145/77 100 Room Air 97.7 01/07/18 01:30 98.3 89 18 142/82 100 Room Air 98.3 01/06/18 22:25 104 163/95 01/06/18 22:01 104 01/06/18 20:00 98.1 104 18 163/95 100 Room Air 98.1 Intake and Output 01/06/18 01/07/18 19:00 07:00 Intake Total 240 ml 1320 ml Balance 240 ml 1320 ml Intake Oral 240 ml 320 ml IV Total 1000 ml # Voids 3 2 Height (Feet): 5 Height (Inches): 3.00 Weight (Pounds): 194 General Appearance: no apparent distress, alert, confused Kathleen Varma MD Jan 07, 2018 15:45
[2018-01-07 16:37] VITALS: BP 149/86
--- NOTE | 2018-01-07 17:28 | Internal Med Progress Note ---
Subjective Date of Service: Jan 07, 2018 Physician Name Constantin Benson Attending Physician Ravi Nunez MD Allergies: Coded Allergies: SULFA (SULFONAMIDE ANTIBIOTICS) (Unverified Allergy, Unknown, 01/03/18) ROS Limited/Unobtainable: No Constitutional: Reports: no symptoms HEENT: Reports: no symptoms Cardiovascular: Reports: no symptoms Respiratory: Reports: no symptoms Gastrointestinal/Abdominal: Reports: no symptoms Genitourinary: Reports: no symptoms Subjective 62 YO F with history of cerebral vascular accident, admitted with altered mental status. Aphasic. Cover for Int Med-Dr Nunez Objective Last Vital Signs Date Time Temp Pulse Resp B/P (MAP) Pulse Ox O2 Delivery O2 Flow Rate FiO2 01/07/18 16:37 90 19 149/86 96 Room Air 01/07/18 12:00 98.9 98.9 01/07/18 08:15 21 Intake and Output 01/06/18 01/07/18 19:00 07:00 Intake Total 240 ml 1320 ml Balance 240 ml 1320 ml Intake Oral 240 ml 320 ml IV Total 1000 ml # Voids 3 2 Objective General Appearance: WD/WN, no apparent distress, alert EENT: PERRL/EOMI, normal ENT inspection Neck: non-tender, normal alignment, supple, normal inspection Cardiovascular: normal peripheral pulses, normal rate, regular rhythm, no gallop/murmur, no JVD Respiratory/Chest: chest wall non-tender, lungs clear, normal breath sounds, no respiratory distress, no accessory muscle use Abdomen: normal bowel sounds, non tender, soft, no organomegaly, no mass Extremities: normal range of motion, non-tender Edema: trace edema 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 Await neruology consult. (3) Cerebral vascular disease (4) Hypertension, uncontrolled Assessment & Plan: Continue metoprolol and avapro. (5) Hypercholesteremia Assessment & Plan: Continue lipitor. (6) Pneumonia (7) Bipolar disorder Assessment & Plan: See psych note. (8) Hyponatremia Assessment & Plan: Continue norm saline IV Assessment/Plan Discharge to [facility] half-way fac today Constantin Benson MD Jan 07, 2018 17:28
--- NOTE | 2018-01-09 11:58 | Discharge Summary ---
Discharge Summary Discharge Summary _ DATE OF ADMISSION: 01/02/2018 DATE OF DISCHARGE: 01/07/2018 REASON FOR ADMISSION: 62 years old female with history of cerebrovascular accident , hypertension, bipolar disorder, resident of [facility] facility, was presented initially to [facility] emergency room for evaluation of altered mental status. CT of the brain, done in the [place] , revealed bilateral lower attenuation areas consistent with infarcts of uncertain age. WBC 10.3, hemoglobin 14.3, hematocrit 41.7. Blood pressure 189/115. Patient admitted with diagnosis of altered mental status, probable acute CVA, cerebrovascular disease, blood pressure out of control, hypercholesterolemia, bipolar disorder. CONSULTANTS: rx specialist Dr. Pride pulmonary Dr. Cantrell psychiatrist Dr. Varma [place] [facility] [employer] [facility]SE: Patient admitted to telemetry floor. MRI of the brain revealed left occipital infarct , new and evidence of extensive cerebrovascular disease with previous CVA. Patient was continued on Aspirin, and Plavix added to regimen. Lipid panel with elevated LDL.Patient was started on high dose of statin. Patient declined Carotid Duplex. ECHO revealed preserved EF 60-65%. Renal parameters and electrolytes were closely monitored . After episode of transient hypotension on 01/04, ARB dose was decreased and holding parameters were placed on antihypertensive medications with goal to keep systolic blood pressure between 120-140 to maintain adequate cerebral perfusion. Blood pressure later stabilized and was managed as per rx specialist with ARB, beta gricelda and Hytrin. Orthostatic vital signs revealed no evidence of orthostatic changes. Patient initially was on gentle IV hydration. DVT prophylaxis provided. Acute encephalopathy was resolving , likely secondary to CVA with underlying psychiatric issues. Psychiatrist closely followed. Psychiatric medication regimen was optimized as per psychiatrist. Mental status improved. Leukocytosis was likely reactive due to acute CVA. Leukocytosis trending down, patient afebrile. No evidence of infection. Urinalysis revealed pyuria but no bacteria , chest x-ray revealed no acute cardiopulmonary pathology ,blood culture were negative. Fall precautions were maintained. Patient was working with physical and occupational therapists. Strict aspiration /reflux precautions were maintained. Renal parameters and electrolytes were closely monitored Electrolytes were corrected as needed ,nephrotoxins were avoided. With episode of transient hypotension on 01/04 , patient developed evidence of acute kidney injury with creatinine 1.5. Hydrochlorothiazide was stopped. Patient was on gentle IV hydration. Acute kidney injury was possibly due to unstable hemodynamic along with probable side effect of diuretic. Acute kidney injury resolved. Creatinine down to normal 1.2. Patient clinically improved and was stable for discharge to [facility] facility for continuation of care. FINAL DIAGNOSES: Left occipital infarct Extensive cerebrovascular disease with history of previous CVA Hypertensive urgency- resolved Transient hypotension Acute kidney injury, possibly acute tubular necrosis due to transient hypotension -resolved Hypercholesterolemia Acute encephalopathy (due to recent CVA on underlying bipolar depression) Electrolyte imbalance; hypokalemia, hypomagnesemia Anxiety disorder Bipolar disorder DISCHARGE MEDICATIONS: See Medication Reconciliation list. DISCHARGE INSTRUCTIONS: Patient was discharged to [facility] facility. Follow up with medical doctor at the facility I have been assigned to dictate discharge summary for this account. I was not involved in the patient's management. Dunia Hernandez NP Jan 09, 2018 11:58
== END 2018-01-07 16:40 | DRG 64 ==
LOC: 2E 22:58 → 4W 01-06 17:32
DX: I63.8 Other cerebral infarction (principal); G93.40 Encephalopathy, unspecified; J18.9 Pneumonia, unspecified organism; N17.9 Acute kidney failure, unspecified; E87.1 Hypo-osmolality and hyponatremia; I50.30 Unspecified diastolic (congestive) heart failure; I69.322 Dysarthria following cerebral infarction; I16.0 Hypertensive urgency; I95.9 Hypotension, unspecified; E87.6 Hypokalemia; E83.42 Hypomagnesemia; F41.9 Anxiety disorder, unspecified; F31.9 Bipolar disorder, unspecified; E78.00 Pure hypercholesterolemia, unspecified; Z88.2 Allergy status to sulfonamides; I11.0 Hypertensive heart disease with heart failure
CPT/HCPCS: 36415; 70551; 71045; 80048; 80061; 81001; 83735; 84100; 85007; 85025; 87040; 87081; 93306; 94640; 94760; J8499